=== PATIENT | male | born 1975 | race Caucasian/White ===

== ENCOUNTER 2016-08-21 19:40 | Inpatient (IN) | payer OTHER, MEDICAID ==
[~2016-08-21] VITALS: Ht 185.4 cm; Wt 59.9 kg
[2016-08-21 19:55] VITALS: BP_SYST 132
--- NOTE | 2016-08-21 19:55 | NUR ---
Placed in room 4 . Placed on patient monitor, blood pressure machine and pulse oximeter. To gown for exam. Side rails up. Report given to MY RN
[2016-08-21] MEDS ORDERED: HYDROmorphone 1 MG INJ. 1 MG/ML AMPUL IVP ONE (20:15)
--- NOTE | 2016-08-21 20:15 | NUR ---
Pt brought in by ACLS, A&Ox4, c/o red and swollen right lower leg and open wound to right heel. Pt denies chest pain, sob or other distress. aware. Safety maintained. Continue to monitor
[2016-08-21] MEDS ORDERED: FERR-57 PO (20:25)
[2016-08-21] MEDS ORDERED: HYDR-4100 PO ×2 (20:26→20:35)
[2016-08-21] MEDS ORDERED: INSU100V11 SQ ×2 (20:26→20:30)
[2016-08-21] MEDS ORDERED: MULT-300 PO (20:28)
[2016-08-21] MEDS ORDERED: NEU300 PO (20:30)
[2016-08-21] MEDS ORDERED: AMYL1CAP54 PO (20:32)
[2016-08-21] MEDS ORDERED: ACET-2165 PO ×2 (20:33→20:34)
[2016-08-21] MEDS ORDERED: MAGN400O4 PO (20:36)
[2016-08-21] MEDS ORDERED: SERT-131 PO (20:38)
[2016-08-21] MEDS ORDERED: RISP3TAB5 PO (20:38)
[2016-08-21 20:45] LABS: MEAN CORPUSCULAR HEMOGLOBIN 27 pg (27-31); MEAN CORPUSCULAR HGB CONC 33 % (32-36); MEAN CORPUSCULAR VOLUME 82 fL (79.0-98.0)
[2016-08-21 20:54] LABS: RED BLOOD CELL COUNT(AUTO) 2.69 MIL/uL (4.2-6.2); WHITE BLOOD COUNT (AUTO) 22.2 K/uL (4.8-10.8)
[2016-08-21 20:55] LABS: PLATELET COUNT (AUTO) 524 K/uL (130-430); RED CELL DISTRIBUTION WIDTH 15.8 % (9.0-15.0)
[2016-08-21 20:57] LABS: HEMATOCRIT 21.9 % (36-54); HEMOGLOBIN 7.2 g/dL (14.0-18.0)
[2016-08-21] MEDS ORDERED: INSU100V8 SUBCUT (20:59)
[2016-08-21] MEDS ORDERED: GLUCOSE GEL PO (21:00)
[2016-08-21] MEDS ORDERED: GLUC1VIA4 IM (21:00)
[2016-08-21] MEDS ORDERED: [UNRECOGNIZED DRUG - CODE] IV (21:01)
--- NOTE | 2016-08-21 21:02 | NUR ---
Medication reconciliation completed with information provided by [facility]. Any prior medication reconciliation on file was reviewed and corrected.
[2016-08-21 21:06] LABS: CALCIUM 8.4 mg/dL (8.4-11.0); CHLORIDE 94 mmol/L (98-107); CREATININE 1.19 mg/dL (0.55-1.30); GLUCOSE 356 mg/dL (70-99); SODIUM SERUM 128 mmol/L (136-145); UREA NITROGEN, BLOOD 21 mg/dL (8-21)
[2016-08-21 21:10] LABS: ALANINE AMINOTRANSFERASE 48 U/L (12-78); ALBUMIN 1.9 g/dL (3.4-4.8); ANION GAP < 3 (5-15); ASPARTATE AMINOTRANSFERASE 50 U/L (10-37); GFR AFRICAN AMERICAN 86 mL/min (>90); TOTAL BILIRUBIN 0.2 mg/dL (0.0-1.0); TOTAL PROTEIN, SERUM 7.7 g/dL (6.4-8.3)
[2016-08-21 21:26] LABS: ATYPICAL LYMPHOCYTES % 0 % (0-0); BAND % (MANUAL) 1 % (0-6); LYMPHOCYTES % (MANUAL) 8 % (20-46); MONOCYTES % (MANUAL) 2 % (0-11)
[2016-08-21 21:27] LABS: BASOPHILS % (MANUAL) 0 % (0-2); EOSINOPHILS % (MANUAL) 0 % (0-7)
[2016-08-21] MEDS ORDERED: PIPERACILLIN/TAZO 3.375 GM in NS 50 ML IV ONE (21:30)
[2016-08-21] MEDS ORDERED: VANCOMYCIN HCL 1,000 MG in NS 250 ML IV ONE (21:30)
[2016-08-21] MEDS ORDERED: VANCOMYCIN HCL 1000 MG/VIAL IV ONE (21:32)
[2016-08-21] MEDS ORDERED: PIPERACILLIN/TAZOBACTAM 3.375 GM/VIAL (ZOSYN) IV ONE (21:32)
--- NOTE | 2016-08-21 22:00 | NUR ---
HS SNACKS TURKEY SANDWICH AND JELLO PROVIDED TO PT. FOR HS SNACKS.
--- NOTE | 2016-08-21 22:55 | NUR ---
Patient will be admitted to [facility] RN. Admitted to Med/Surg unit. Will go to room 135. Belongings list completed. Summary report printed. Report will be given at bedside.
--- NOTE | 2016-08-21 23:15 | NUR ---
ADMIT NOTE Received pt from ER to the floor with a diagnosis of Cellulitis. Admission process initiated. patient oriented to pain management, safety and call light-teach back done.
[2016-08-21 23:17] VITALS: BP_SYST 135
[2016-08-22] VITALS (7 sets, daily range): BP systolic 107–132
[2016-08-22] MEDS ORDERED: ACETAMINOPHEN 325 MG TABLET PO PRN
[2016-08-22] MEDS ORDERED: MILK OF MAGNESIA 30 ML UDC PO PRN
--- NOTE | 2016-08-22 | NUR ---
Initial note A/O x 3, no SOB, no chest pain, c/o R leg pain when touching. Skin warm to touch, IV at L FA, patent. R foot/sole wound noted, pink/white wound bed with yellow drainage from old dressing. One blister at R leg, some yellow drainage on chux, 2 dry scabs on L legs with periwound redness. Pressure ulcer at buttock with pink/red wound bed and excoriation. +4 edema at R foot and +1 edema at L foot. +1 bilateral pedal pulses. Clear lung sounds and active bowel sounds. 250 ml clear yellow urine noted in the urinal. Patient stated he is wearing diaper/brief due to bowel incontinence, last BM was on 08/21/2016. Call light within reach, bed at lowest position, bed alarm on, will continue to monitor patient. Addendum: 08/22/16 at 0027 by Yusef Waterman RN Patient had 2nd and 5th toes of R foot amputated years ago.
--- NOTE | 2016-08-22 00:04 | NUR ---
CONSULTATION PAGED REASON FOR CONSULTATION:CELLULITIS OF RT LOWER EXT. WAS CONSULT CALLED?Y PERSON WHO WAS NOTIFIED:NAHOMY CONSULTING PHYSICIAN:STIVEN PEREZ BROADCAST NEWS PRODUCER SPECIALTY:INFECTIOUS DISEASE BROADCAST NEWS PRODUCER PHONE NUMBER:[phone]
[2016-08-22] MEDS: HYDROmorphone 2 MG/ML VIAL IVP PRN ×6 (00:15→22:07)
--- NOTE | 2016-08-22 02:00 | NUR ---
Rounds Patient is sleeping in bed. No SOB, no chest pain, no grimacing. Call light within reach, will continue to monitor patient.
--- NOTE | 2016-08-22 03:23 | NUR ---
Assisted patient use walker back from bathroom to bed. Patient stated he had a BM. Patient asked for diaper because he is afraid to wet the bed. Explained to patient that chux is underneath him if case of accident. Patient refused to put on underwear at this time. Patient had mild pain at R foot refused pain med. Call light within reach, bed at lowest position, bed alarm on, will continue to monitor patient.
--- NOTE | 2016-08-22 04:42 | NUR ---
Rounds Sleeping in bed, no SOB, no chest pain, no grimacing. Call light within reach, bed at lowest position, bed alarm on, will continue to monitor patient.
--- NOTE | 2016-08-22 05:00 | NUR ---
C/o 01/13 at R foot, Dilaudid IVP given. Provided coffee per patient requested. Emptied 200 clear yellow urine from urinal.
[2016-08-22] MEDS ORDERED: PIPERACILLIN/TAZOBACTAM 3.375 GM/VIAL (ZOSYN) IV ONE (05:54)
[2016-08-22] MEDS: PIPERACILLIN/TAZO 3.375/DEX-IS 50 ML IV SCH ×2 (06:00→12:00)
--- NOTE | 2016-08-22 06:10 | NUR ---
Rounds Resting/sleeping in bed. No SOB, no chest pain, no grimacing. IV Zosyn ongoing. IV site patent, no s/s of infection or infiltration. Call light within reach, bed at lowest position, bed alarm on, will continue to monitor patient.
[2016-08-22] MEDS: INSULIN REGULAR, HUMAN 100 UNITS/ML, 10 ML VIAL (novoLIN R) SUBCUT PRN ×2 (06:21→11:18)
[2016-08-22 06:28] LABS: BASOPHILS % (AUTO) 0.1 % (0.0-2.0); EOSINOPHILS % (AUTO) 0.1 % (0.0-4.0); HEMATOCRIT 23.3 % (36-54); HEMOGLOBIN 7.6 g/dL (14.0-18.0); LYMPHOCYTES # (AUTO) 1.2 K/uL (1.0-5.5); LYMPHOCYTES % (AUTO) 4.8 % (20.5-51.5); MEAN CORPUSCULAR HEMOGLOBIN 27 pg (27-31); MEAN CORPUSCULAR HGB CONC 33 % (32-36); MEAN CORPUSCULAR VOLUME 83 fL (79.0-98.0); MONOCYTES # (AUTO) 0.8 K/uL (0.0-1.0); MONOCYTES % (AUTO) 3.3 % (1.7-9.3); NEUTROPHILS # (AUTO) 22.3 K/uL (1.8-7.7); NEUTROPHILS % (AUTO) 91.7 % (40.0-70.0); PLATELET COUNT (AUTO) 506 K/uL (130-430); RED CELL DISTRIBUTION WIDTH 16.2 % (9.0-15.0); WHITE BLOOD COUNT (AUTO) 24.3 K/uL (4.8-10.8)
--- NOTE | 2016-08-22 06:30 | NUR ---
BS 453 Patient did not have any s/s of hyperglycemia. Patient had one cup of coffee with some sugar and cream earlier. Awaiting call back.
[2016-08-22 06:31] LABS: CALCIUM 8.4 mg/dL (8.4-11.0); CREATININE 1.08 mg/dL (0.55-1.30); POTASSIUM 3.9 mmol/L (3.5-5.1)
--- NOTE | 2016-08-22 07:00 | NUR ---
Dr. Jurado call back Regarding patient blood sugar 453 and Hgb 7.2. stated patient always had high blood sugar, just gave 12 units Insulin as ordered. No new order receive.
[2016-08-22 07:22] LABS: IRON (SERUM) 11 mcg/dL (59-158); TOTAL IRON BIND. CAPACITY 170 ug/dL (250-450)
--- NOTE | 2016-08-22 07:34 | NUR ---
Closing note Sleeping in bed, no SOB, no chest pain, no grimacing. Bed at lowest position, bed alarm on, call light within reach. Report given to incoming nurse regarding patient condition, sugar level 453 and HgB 7.2 and is aware. No new order. Also gave report regarding patient wounds and wound consult had been ordered.
--- NOTE | 2016-08-22 09:03 | NUR ---
Nutrition Update Chucky Scale 15 noted. Pt admitted for cellulitis of LE. Diet: [facility] BMI: 17.4 kg/m2 RD to follow per nutrition care standards.
[2016-08-22] MEDS: MULTIVITS,CA,MINERALS/IRON/FA 1 TABLET PO SCH (09:27)
[2016-08-22] MEDS: risperiDONE 1 MG TABLET (RisperDAL) PO SCH (09:27)
[2016-08-22] MEDS: GABAPENTIN 300 MG CAPSULE PO SCH ×3 (09:27→21:08)
[2016-08-22] MEDS: FERROUS SULFATE 325 MG TABLET.DR PO SCH ×2 (09:27→21:07)
[2016-08-22] MEDS: SERTRALINE HCL 50 MG TABLET PO SCH ×2 (09:49→21:07)
[2016-08-22] MEDS: LIPASE/PROTEASE/AMYLASE 1 CAP PO SCH ×3 (09:49→21:10)
[2016-08-22] MEDS ORDERED: VANCOMYCIN HCL 750 MG in NS 250 ML IV SCH (10:00)
--- NOTE | 2016-08-22 10:00 | NUR ---
rounds hob elevated and asleep. due abx was given as ordered.
--- NOTE | 2016-08-22 12:00 | NUR ---
rounds no hypo hyperglycemic reaction noted. call light within reached. no sob noted.
--- NOTE | 2016-08-22 14:00 | NUR ---
rounds family in the room with patient. resting comfortably.
--- NOTE | 2016-08-22 15:30 | NUR ---
WOUND EVALUATION: Wound Consult received from Dr. Jurado. Thank you, Dr. Jurado, for the consult. Patient received in a Wilmore Bed with an Isoflex JUNIOR mattress, awake, alert, and oriented. Patient is unable to turn independently. Chucky Score is a 15. Past Medical History:Insulin-Dependent Diabetes Mellitus, Peripheral Vascular Disease of the lower extremities, and Charcot foot of the right side. Recent Labs: WBC 24.3, RBC 2.80, Hemoglobin 7.6, Hematocrit 23.3, Platelets 506, Sodium 130, Chloride 94, GFR 79, POC Glucose 354, Iron 11, TIBC 170, % Sat 6, Albumin 1.9 Microbiology: Blood culture 2 in progress. Intrinsic factors that delay wound healing: Extrinsic factors that delay wound healing: Decreased mobility. Wound Assessment: 1) Right Plantar Heel: Diabetic Ulcer, present on admission. Wound bed is 95% yellow tissue, 5% pink tissue. No odor, scant yellow drainage. Татьяна-wound callused, with dry flaky skin. Measures 3.5 cm x 5.6 cm x 0.6 cm. Extremity is very warm to touch, whereas left lower extremity is cool to touch. Dry, flaky skin present on right ankle, right dorsal foot, and right lower extremity. Fourth and fifth toes have old amputation sites. Recommend: Cleanse wound with normal saline. Place sure prep onto татьяна-wound. Venelex ointment onto the wound bed. Pack wound with 1/4 inch iodoform. Cover with foam dressing. Wrap with Soco wrap. Perform wound care daily, and as needed for dressing soiling or dislodgement. 2) right proximal anterior lateral harrison: Open bulla with small yellow drainage. Recommend: Cleanse wound with normal saline. Pat dry. Put sure prep on periwound. Apply Xeroform dressing to site, cover with nonadherent pad, and wrap with Soco wrap. Secure with tape. Also recommend: Reposition patient every 2 hours with pillow support and off-load pressure areas with pillows for pressure re-distribution. Offload, elevate and float bilateral heels with pillows. Perform skin care and monitor skin integrity Q shift. Use moisture barrier cream on buttocks and other moisture susceptible areas QID and as needed for soiling. Place patient on a low air-loss mattress. Recommend surgical consult. Spoke with Dr. Jurado and received orders for Venelex. Also recommended to Dr. Jurado to order a surgical consult
--- NOTE | 2016-08-22 16:00 | NUR ---
rounds with dimas wound nurse at bedside and mckenna michele's wound on the r leg. dressing changed after to the r leg.
[2016-08-22] MEDS: SOD FERRIC GLUC COMPLEX/SUC 125 MG in NS 100 ML IV SCH ×2 (16:27→17:52)
--- NOTE | 2016-08-22 18:11 | NUR ---
rounds accucheck was done with a blood sugar of 74 . no hypo hyperglycemic reaction noted. eating dinner and due meds given as ordered. stable needs attended.
--- NOTE | 2016-08-22 19:00 | NUR ---
closing notes watchin tv. no sob noted. resting comfortably. call light within reached.
--- NOTE | 2016-08-22 19:46 | NUR ---
PM ASSESSMENT PT. A/OX4, VITAL SIGNS STABLE, NO DISTRESS NOTED, DENIES PAIN AT THIS TIME, NOTED WITH LFA 20G, SALINE LOCKED, FLUSHED WELL. NOTED WITH DRESSING TO RIGHT LOWER EXTREMITY, DRESSING IS CLEAN, DRY, INTACT, NOTED WITH PITTING EDEMA 4+ TO R. FOOT, NOTED WITH REDNESS AND SWELLING AND WEAK PEDAL PULSE TO R. FOOT, ELEVATED WITH PILLOW SUPPORT. UPDATED WITH PLAN OF CARE. ENCOURAGED PT. TO USE CALL LIGHT FOR ASSISTANCE, CALL LIGHT WITHIN REACH, BED IN LOWEST POSITION, BED ALARM ON.
[2016-08-22] MEDS: LACTOBACILLUS RHAMNOSUS GG 1 CAP CAPSULE PO SCH (21:07)
[2016-08-22] MEDS: TEMAZEPAM 15 MG CAPSULE PO SCH (21:07)
[2016-08-22] MEDS: ENOXAPARIN SODIUM 40 MG/0.4 ML SYRINGE SUBCUT SCH (21:08)
--- NOTE | 2016-08-22 21:27 | NUR ---
ACCUCHECK BLOOD SUGAR=93, NO COVERAGE GIVEN, PT. REFUSED LEVEMIR AT THIS TIME.
[2016-08-22] MEDS ORDERED: CEFTAROLINE FOSAMIL ACETATE 600 MG VIAL IV ONE (22:00)
[2016-08-22] MEDS: ONDANSETRON HCL 4 MG/2 ML VIAL IVP PRN (22:07)
[2016-08-22] MEDS: CEFTAROLINE FOSAMIL ACETATE 600 MG in NS 250 ML IV SCH (22:08)
--- NOTE | 2016-08-22 23:30 | NUR ---
RN ROUNDS PT. RESTING QUIETLY, VITAL SIGNS STABLE, NO DISTRESS NOTED, DENIES PAIN, CALL LIGHT WITHIN REACH.
--- NOTE | 2016-08-23 01:30 | NUR ---
RN ROUNDS PT. RESTING QUIETLY, VITAL SIGNS STABLE, NO DISTRESS NOTED, DENIES PAIN, REPOSTIONED, WITH PILLOW SUPPORT, CALL LIGHT WITHIN REACH
--- NOTE | 2016-08-23 03:30 | NUR ---
RN ROUNDS REPOSITIONED WITH PILLOW SUPPORT.
[2016-08-23] MEDS: ONDANSETRON HCL 4 MG/2 ML VIAL IVP PRN (03:42)
[2016-08-23] MEDS: HYDROmorphone 2 MG/ML VIAL IVP PRN ×5 (03:42→21:32)
--- NOTE | 2016-08-23 03:42 | NUR ---
PAIN PT. C/O SEVERE GENERALIZED PAIN RATED 7/10, DILAUDID 2 MG IVP GIVEN ORDERED. VITAL SIGNS STABLE, CALL LIGHT WITHIN REACH.
[2016-08-23 04:00] VITALS: BP_SYST 119
[2016-08-23 05:06] LABS: FOLATE (FOLIC ACID) 15.8 ng/mL (>3.0)
--- NOTE | 2016-08-23 05:30 | NUR ---
RN ROUNDS PT. RESTING QUIETLY, VITAL SIGNS STABLE, NO DISTRESS NOTED, DENIES PAIN, CALL LIGHT WITHIN REACH.
[2016-08-23] MEDS: INSULIN REGULAR, HUMAN 100 UNITS/ML, 10 ML VIAL (novoLIN R) SUBCUT PRN ×3 (05:47→20:52)
--- NOTE | 2016-08-23 06:00 | NUR ---
ACCUCHECK BLOOD FHSAV=418, 4 UNITS REGULAR INSULIN GIVEN ORDERED.
--- NOTE | 2016-08-23 06:42 | NUR ---
CLOSING NOTES PT. RESTING QUIETLY, VITAL SIGNS STABLE, NO DISTRESS NOTED, DENIES PAIN, DRESSING TO RLE IN PLACE, PILLOW UNDER RLE IN PLACE. IV ACCESS PATENT AND BENIGN, CALL LIGHT WITHIN REACH.
[2016-08-23 06:48] LABS: BASOPHILS % (AUTO) 0.1 % (0.0-2.0); EOSINOPHILS # (AUTO) 0.1 K/uL (0.0-0.4); EOSINOPHILS % (AUTO) 0.2 % (0.0-4.0); HEMATOCRIT 22.3 % (36-54); HEMOGLOBIN 7.3 g/dL (14.0-18.0); LYMPHOCYTES # (AUTO) 0.7 K/uL (1.0-5.5); LYMPHOCYTES % (AUTO) 2.6 % (20.5-51.5); MEAN CORPUSCULAR HEMOGLOBIN 27 pg (27-31); MEAN CORPUSCULAR HGB CONC 33 % (32-36); MEAN CORPUSCULAR VOLUME 83 fL (79.0-98.0); MONOCYTES # (AUTO) 0.9 K/uL (0.0-1.0); MONOCYTES % (AUTO) 3.2 % (1.7-9.3); NEUTROPHILS # (AUTO) 25.3 K/uL (1.8-7.7); PLATELET COUNT (AUTO) 525 K/uL (130-430); RED BLOOD CELL COUNT(AUTO) 2.69 MIL/uL (4.2-6.2); RED CELL DISTRIBUTION WIDTH 15.8 % (9.0-15.0)
[2016-08-23 07:07] LABS: CALCIUM 8.5 mg/dL (8.4-11.0); CREATININE 0.85 mg/dL (0.55-1.30); PHOSPHORUS 4.4 mg/dL (2.7-4.5); POTASSIUM 4.1 mmol/L (3.5-5.1)
[2016-08-23 08:00] VITALS: BP_SYST 115
--- NOTE | 2016-08-23 08:00 | NUR ---
initial notes rec patient awake alert eating breakfast with hob elevated. ivf tko infusing well on the l forearm. no infiltration noted. r leg dressing dry and intact and kept elevated on a pillow. no c/o pain at this time. fall/safety precaution reminded and aware. bed in low position and side rails up and locked. call light with reached and knows when to call.
[2016-08-23] MEDS: FERROUS SULFATE 325 MG TABLET.DR PO SCH ×2 (08:36→20:39)
[2016-08-23] MEDS: LACTOBACILLUS RHAMNOSUS GG 1 CAP CAPSULE PO SCH ×2 (08:36→20:37)
[2016-08-23] MEDS: LIPASE/PROTEASE/AMYLASE 1 CAP PO SCH ×3 (08:36→20:37)
[2016-08-23] MEDS: risperiDONE 1 MG TABLET (RisperDAL) PO SCH (08:36)
[2016-08-23] MEDS: SERTRALINE HCL 50 MG TABLET PO SCH ×2 (08:36→20:37)
[2016-08-23] MEDS: GABAPENTIN 300 MG CAPSULE PO SCH ×3 (08:37→20:37)
[2016-08-23] MEDS: MULTIVITS,CA,MINERALS/IRON/FA 1 TABLET PO SCH (08:38)
--- NOTE | 2016-08-23 08:51 | NUR ---
rounds pt was taken for nuclear med bone scan via wheelchair by mayur werner.
--- NOTE | 2016-08-23 09:40 | NUR ---
rounds pt was back from [facility] and went to sleep. no sob noted.
[2016-08-23] MEDS: CEFTAROLINE FOSAMIL ACETATE 600 MG in NS 250 ML IV SCH ×2 (10:02→20:41)
[2016-08-23 11:33] LABS: NEUTROPHILS % (AUTO) 93.9 % (40.0-70.0)
[2016-08-23 12:00] VITALS: BP_SYST 128
--- NOTE | 2016-08-23 13:18 | NUR ---
rounds pain med was given as requested. dr hampton was called re pos mrsa. awaiting to call back.
--- NOTE | 2016-08-23 14:08 | NUR ---
rounds pt was picked up for another phase of the bone scan. was picked up via wheelchair. no sob noted
--- NOTE | 2016-08-23 16:00 | NUR ---
rounds due meds given and patient is sleeping soundly. no acute distress.
[2016-08-23] MEDS: SOD FERRIC GLUC COMPLEX/SUC 125 MG in NS 100 ML IV SCH (16:20)
[2016-08-23 16:24] VITALS: BP_SYST 131
--- NOTE | 2016-08-23 17:55 | NUR ---
WOUND CARE PROVIDED CARE AND REDRESSED WOUNDS ON RIGHT HEEL AND RIGHT LOWER LEG PER MAHAMED'S PROTOCOL
[2016-08-23] MEDS: FLUCONAZOLE 200 mg/ NS 100 ML IV SCH (18:14)
--- NOTE | 2016-08-23 19:00 | NUR ---
rounds pt stated that blood sugar was low and was 64. apple juice was given with 5 packets of sugar. was rechecked after 20 min and was 68. sandwich and jello was given . will endorsed to julia werner re the blood sughar. stacy charge nurse made aware.
--- NOTE | 2016-08-23 19:20 | NUR ---
Initial Notes Received pt in bed having dinner.Pt is a/a/o x4. No s/s of any distress noted. IV noted to L f/a g 20, no infiltrate and with good blood return. Noted dressing to R leg, no bleeding and no discharge.All extremities are strong, BRP. Discussed plan of care with pt and verbalized understanding. Bed in low position with call light within reach. Will cont to monitor.
--- NOTE | 2016-08-23 20:01 | NUR ---
Started blood transfusion Started blood transfusion. Pt is a/a/o x4 at this time. V/S are wnl. No s/s of any distress noted. Will monitor for adverse reactions. Addendum: 08/23/16 at 2214 by Rubio Sanders RN correction: correct time is 2200
[2016-08-23] MEDS: TEMAZEPAM 15 MG CAPSULE PO SCH (20:37)
[2016-08-23] MEDS: ENOXAPARIN SODIUM 40 MG/0.4 ML SYRINGE SUBCUT SCH (20:38)
[2016-08-23] MEDS ORDERED: MUPIROCIN NASAL 2% OINT. 1 GM NS SCH (21:00)
[2016-08-24 00:18] VITALS: BP_SYST 125
--- NOTE | 2016-08-24 00:33 | NUR ---
Started 2nd unit of PRBC Started 2nd unit of prbc. v/s are wnl, no s/s of any distress noted. Will monitor pt.
--- NOTE | 2016-08-24 03:00 | NUR ---
Finished transfusing blood. Finished transfusing 2 units of blood. Pt is resting comfortably. V/S are wnl, no adverse reaction noted. Will cont to monitor.
--- NOTE | 2016-08-24 04:14 | NUR ---
Admin Glucagon Pt was diaphoretic and slow to respond. B/S was 33. Admin Glucagon PRN as ordered, snack was also provided. Will recheck after 30 mins.
[2016-08-24] MEDS: GLUCAGON,HUMAN RECOMBINANT 1 MG VIAL IM PRN ×2 (04:19→17:57)
[2016-08-24] MEDS: HYDROmorphone 2 MG/ML VIAL IVP PRN ×4 (04:47→19:35)
[2016-08-24 05:22] VITALS: BP_SYST 142
[2016-08-24 06:56] LABS: HEMATOCRIT 26.2 % (36-54); HEMOGLOBIN 8.6 g/dL (14.0-18.0); MEAN CORPUSCULAR HEMOGLOBIN 28 pg (27-31); MEAN CORPUSCULAR HGB CONC 33 % (32-36); MEAN CORPUSCULAR VOLUME 84 fL (79.0-98.0); PLATELET COUNT (AUTO) 497 K/uL (130-430); RED BLOOD CELL COUNT(AUTO) 3.11 MIL/uL (4.2-6.2)
[2016-08-24 06:58] LABS: CALCIUM 8.2 mg/dL (8.4-11.0); CREATININE 0.92 mg/dL (0.55-1.30); POTASSIUM 3.8 mmol/L (3.5-5.1)
--- NOTE | 2016-08-24 07:05 | NUR ---
Final Rounds Patient is resting at this time. No s/s of any pain noted. V/S are wnl. All needs met and anticipated by noc nurses. Bed in low position with side rails up x2 for safety. Endorsed
--- NOTE | 2016-08-24 07:06 | NUR ---
Pt refused Insulin Pt refused insulin d/t hypoglycemic episode. Explained risk and benefits but still refused. Will notify Dr Jurado.
[2016-08-24 07:21] LABS: WHITE BLOOD COUNT (AUTO) 30.4 K/uL (4.8-10.8)
--- NOTE | 2016-08-24 07:30 | NUR ---
Dr. PAREDES , paged for critical lab result , spoke to
--- NOTE | 2016-08-24 07:45 | NUR ---
INITIAL NOTE RECEIVED PATIENT FROM SALES DIRECTOR NURSE, PATIENT IS ALERT AND ORIENTED X4, PATIENT IS CURRENTLY RESTING IN BED, ASSESSMENT COMPLETE, PATIENT HAS IV ON LEFT UPPER ARM SALINE LOCK, FLUSHES WELL, PATIENT HAS DRESSING TO RIGHT LOWER LEG AND RIGHT HEEL, DRESSINGS ARE DRY AND INTACT, INSTRUCTED PATIENT TO USE CALL BADILLO IF ASSISTANCE IS NEEDED, PATIENT VERBALIZED UNDERSTANDING, CALL BADILLO LEFT NEXT TO PATIENT'S HAND, BED IN LOWEST POSITION, SIDE RAILS UP, FALL PRECAUTIONS IN PLACE, WILL CONTINUE TO MONITOR PATIENT.
[2016-08-24 08:01] VITALS: BP_SYST 140
[2016-08-24] MEDS: GABAPENTIN 300 MG CAPSULE PO SCH ×3 (08:10→21:22)
[2016-08-24] MEDS: risperiDONE 1 MG TABLET (RisperDAL) PO SCH (08:11)
[2016-08-24] MEDS: LACTOBACILLUS RHAMNOSUS GG 1 CAP CAPSULE PO SCH ×2 (08:11→21:23)
[2016-08-24] MEDS: FERROUS SULFATE 325 MG TABLET.DR PO SCH ×2 (08:11→21:23)
[2016-08-24] MEDS: SERTRALINE HCL 50 MG TABLET PO SCH ×2 (08:11→21:23)
[2016-08-24] MEDS: LIPASE/PROTEASE/AMYLASE 1 CAP PO SCH ×3 (08:11→21:38)
[2016-08-24] MEDS: MULTIVITS,CA,MINERALS/IRON/FA 1 TABLET PO SCH (08:11)
[2016-08-24] MEDS: CEFTAROLINE FOSAMIL ACETATE 600 MG in NS 250 ML IV SCH ×2 (08:13→20:32)
--- NOTE | 2016-08-24 08:21 | NUR ---
MEDICATIONS PATIENT RECEIVED MORNING MEDICATIONS, INFORMED PATIENT ON POTENTIAL SIDE EFFECTS OF MEDS, PATIENT VERBALIZED UNDERSTANDING, NO OTHER NEEDS AT THIS TIME, WILL CONTINUE TO MONITOR, CALL BADILLO NEXT TO PATIENT'S HAND, BED ALARM ON, FALL PRECAUTIONS IN PLACE.
[2016-08-24 09:22] LABS: BAND % (MANUAL) 5 % (0-6); BASOPHILS % (MANUAL) 0 % (0-2); EOSINOPHILS % (MANUAL) 0 % (0-7); LYMPHOCYTES % (MANUAL) 2 % (20-46); MONOCYTES % (MANUAL) 4 % (0-11)
--- NOTE | 2016-08-24 09:48 | NUR ---
RN ROUNDS PATIENT IS RESTING IN BED WITH EYES CLOSED, NO SIGNS OF DISTRESS NOTED, BREATHING IS EVEN AND UNLABORED, CALL BADILLO LEFT NEXT TO PATIENT HAS, FALL AND ISOLATION PRECAUTIONS IN PLACE, WILL CONTINUE TO MONITOR.
--- NOTE | 2016-08-24 10:36 | NUR ---
ID MD Dr. Weston paged Paged regarding critical lab result
[2016-08-24] MEDS: MUPIROCIN 2% TOPICAL OINTMENT 22 GM TP SCH ×2 (10:42→21:38)
[2016-08-24] MEDS: INSULIN REGULAR, HUMAN 100 UNITS/ML, 10 ML VIAL (novoLIN R) SUBCUT PRN (11:49)
--- NOTE | 2016-08-24 11:52 | NUR ---
RN ROUNDS PATIENT IS CURRENTLY RESTING IN BED WITH EYES CLOSED, PATIENT WAS GIVEN INSULIN FOR BS OF 310, PATIENT TOLERATED WELL, WILL CONTINUE TO MONITOR PATIENT, FALL PRECAUTIONS IN PLACE, NO OTHER NEEDS AT THIS TIME,
[2016-08-24 12:33] VITALS: BP_SYST 128
--- NOTE | 2016-08-24 13:45 | NUR ---
RN ROUNDS PATIENT IS UP WATCHING TV, PATIENT HAS NO COMPLAINTS OF PAIN AT THIS TIME, WILL CONTINUE TO MONITOR.
[2016-08-24] MEDS: CLINDAMYCIN 600 mg/50mL D5W 50 ML IV SCH ×2 (14:28→22:02)
[2016-08-24] MEDS: FLUCONAZOLE 200 mg/ NS 100 ML IV SCH (15:54)
--- NOTE | 2016-08-24 16:00 | NUR ---
LOW GLUCOSE GLUCOSE CHECKED, BS DROPPED DOWN TO 35, PATIENT WAS ALERT AND ORIENTED, PATIENT WAS SHAKY, GLUCAGEN GIVEN, BS RECHECK WENT UP TO 101, CALLED DR. LORD, AND NOTIFIED HIM, ORDERED FOR PATIENT TO HAVE D50 PRN Addendum: 08/24/16 at 1818 by Charles Coe RN TIME CHANGE 1800
--- NOTE | 2016-08-24 16:03 | NUR ---
RN ROUNDS PATIENT IS CURRENTLY RESTING IN BED WITH EYES CLOSED, NO SIGNS OF DISTRESS NOTED, BREATHING IS EVEN AND UNLABORED, CALL BADILLO IS LEFT NEXT TO PATIENT'S HAND, WILL CONTINUE TO MONITOR PATIENT, FALL AND ISOLATION PRECAUTIONS IN PLACE.
[2016-08-24 16:34] VITALS: BP_SYST 124
--- NOTE | 2016-08-24 17:00 | NUR ---
WOUND CARE Wound Assessment: 1) Right Plantar Heel: Diabetic Ulcer, Sharifa-wound callused, with dry flaky skin. Cleansed wound with normal saline. Placed sure prep onto sharifa-wound. Venelex ointment onto the wound bed. Packed wound with 1/4 inch iodoform. Covered with foam dressing. Wrapped with Soco wrap. 2) right proximal anterior lateral harrison: Open bulla with small yellow drainage. Cleansed wound with normal saline. Pat dry. Put sure prep onto periwound. Applied Xeroform dressing to site, covered with nonadherent pad, and wrap with Soco wrap. Secured with tape.
[2016-08-24] MEDS: SOD FERRIC GLUC COMPLEX/SUC 125 MG in NS 100 ML IV SCH (17:19)
--- NOTE | 2016-08-24 17:28 | NUR ---
RN ROUNDS PATIENT'S BLOOD SUGAR IS DOWN TO 57, ASYMPTOMATIC, PATIENT STATES HE FEELS FINES, PATIENT WAS GIVEN ORANGE JUICES, WILL RECHECK SUGAR
[2016-08-24] MEDS ORDERED: DEXTROSE 50% JECT 50 ML DISP.SYRIN IVP ONE (18:45)
--- NOTE | 2016-08-24 18:46 | NUR ---
CLOSING NOTE PATIENT IS SITTING UP IN BED WATCHING TV, NO SIGNS OF DISTRESS NOTED, ALL NEEDS MET, WILL ENDORSE PATIENT TO DICE MAKER NURSE, CALL BADILLO LEFT NEXT TO PATIENT'S HAND, BED IN LOWEST POSITION, BED ALARM ON, FALL PRECAUTIONS IN PLACE.
[2016-08-24 20:00] VITALS: BP_SYST 129
--- NOTE | 2016-08-24 20:05 | NUR ---
Rounds Received patient lying in bed resting, c/o pain, medication given by morning nurse will monitor for effectiveness. IV site checked intact and patent, IV fluid infusing to TKO rate. Instructed patient to call nurse when getting out of bed, call light within reach.
--- NOTE | 2016-08-24 21:00 | NUR ---
Blood sugar 158 Patient blood sugar 158, refused Levemir and insulin coverage. Encouraged patient to eat snack. will monitor.
[2016-08-24] MEDS: TEMAZEPAM 15 MG CAPSULE PO SCH (21:23)
[2016-08-24] MEDS: ENOXAPARIN SODIUM 40 MG/0.4 ML SYRINGE SUBCUT SCH (21:39)
[2016-08-24] MEDS: ONDANSETRON HCL 4 MG/2 ML VIAL IVP PRN (22:02)
--- NOTE | 2016-08-24 22:45 | NUR ---
C/O nausea Patient c/o nausea no vomiting, Zofran ivp given earlier with effective result noted, patient resting quietly, call light within reach.
[2016-08-25 01:14] VITALS: BP_SYST 114
--- NOTE | 2016-08-25 01:27 | NUR ---
Rounds Patient resting quietly call light within reach.
[2016-08-25 04:34] VITALS: BP_SYST 119
--- NOTE | 2016-08-25 04:41 | NUR ---
Rounds Patient resting quietly call light within reach.
[2016-08-25] MEDS: CLINDAMYCIN 600 mg/50mL D5W 50 ML IV SCH ×3 (05:00→21:42)
[2016-08-25] MEDS: HYDROmorphone 2 MG/ML VIAL IVP PRN ×6 (05:00→21:40)
[2016-08-25] MEDS: INSULIN REGULAR, HUMAN 100 UNITS/ML, 10 ML VIAL (novoLIN R) SUBCUT PRN ×2 (05:53→23:45)
[2016-08-25] MEDS: DEXTROSE 50% JECT 50 ML DISP.SYRIN IVP PRN (05:58)
--- NOTE | 2016-08-25 06:40 | NUR ---
Blood sugar 57 Patient blood sugar 57, D50 IVP given at 05:50 per MD order, rechecked blood sugar 116. Informed Dr Jurado no order received. Charge nurse made aware. will monitor patient.
[2016-08-25 06:43] LABS: CALCIUM 8.4 mg/dL (8.4-11.0); CHLORIDE 99 mmol/L (98-107); CREATININE 0.79 mg/dL (0.55-1.30); POTASSIUM 3.9 mmol/L (3.5-5.1); SODIUM SERUM 134 mmol/L (136-145)
[2016-08-25 06:48] LABS: HEMOGLOBIN 8.7 g/dL (14.0-18.0); MEAN CORPUSCULAR HEMOGLOBIN 27 pg (27-31); MEAN CORPUSCULAR HGB CONC 32 % (32-36); MEAN CORPUSCULAR VOLUME 85 fL (79.0-98.0); MONOCYTES % (AUTO) 2.9 % (1.7-9.3); NEUTROPHILS % (AUTO) 89.7 % (40.0-70.0); PLATELET COUNT (AUTO) 439 K/uL (130-430); RED CELL DISTRIBUTION WIDTH 15.4 % (9.0-15.0); WHITE BLOOD COUNT (AUTO) 16.7 K/uL (4.8-10.8)
[2016-08-25 06:49] LABS: BASOPHILS % (AUTO) 0.1 % (0.0-2.0); EOSINOPHILS # (AUTO) 0.1 K/uL (0.0-0.4); EOSINOPHILS % (AUTO) 0.3 % (0.0-4.0); LYMPHOCYTES # (AUTO) 1.2 K/uL (1.0-5.5); MONOCYTES # (AUTO) 0.5 K/uL (0.0-1.0); NEUTROPHILS # (AUTO) 14.9 K/uL (1.8-7.7)
[2016-08-25 06:58] LABS: UREA NITROGEN, BLOOD 13 mg/dL (8-21)
--- NOTE | 2016-08-25 07:23 | NUR ---
Assistance with placing brief for incontinence as patient had alarmed the bed exit. AIR HOLE DRILLER present. Assist getting coffee. Patient asking for pain med. Notified next available dosing would be 9 am. Assessed patient.
[2016-08-25 07:27] LABS: GFR AFRICAN AMERICAN 138 mL/min (>90)
[2016-08-25 07:28] LABS: ANION GAP < 3 (5-15)
[2016-08-25 07:31] LABS: GLUCOSE 46 mg/dL (70-99)
--- NOTE | 2016-08-25 07:45 | NUR ---
AM RN notes Report given at bedside by Candice night nurse. Educated patient on safety to call for assistance before getting out of bed. Patient is awake, eating breakfast. Vital signs and assessment where done.
[2016-08-25 08:09] VITALS: BP_SYST 117
--- NOTE | 2016-08-25 09:05 | NUR ---
RN rounding notes Patient is awake and watching television. States his pain is a 8/10 medicated appropriately. All other AM medication also given at this time.
[2016-08-25] MEDS: LACTOBACILLUS RHAMNOSUS GG 1 CAP CAPSULE PO SCH ×2 (09:15→21:40)
[2016-08-25] MEDS: SERTRALINE HCL 50 MG TABLET PO SCH ×2 (09:15→21:41)
[2016-08-25] MEDS: risperiDONE 1 MG TABLET (RisperDAL) PO SCH (09:16)
[2016-08-25] MEDS: MULTIVITS,CA,MINERALS/IRON/FA 1 TABLET PO SCH (09:16)
[2016-08-25] MEDS: LIPASE/PROTEASE/AMYLASE 1 CAP PO SCH ×3 (09:17→21:42)
[2016-08-25] MEDS: GABAPENTIN 300 MG CAPSULE PO SCH ×3 (09:17→21:41)
[2016-08-25] MEDS: FERROUS SULFATE 325 MG TABLET.DR PO SCH ×2 (09:17→21:41)
[2016-08-25] MEDS: CEFTAROLINE FOSAMIL ACETATE 600 MG in NS 250 ML IV SCH ×2 (09:18→23:20)
[2016-08-25] MEDS: MUPIROCIN 2% TOPICAL OINTMENT 22 GM TP SCH ×2 (09:20→21:59)
--- NOTE | 2016-08-25 09:44 | NUR ---
RN rounding note Patients Blood sugar is 82mg/dl and Patient is refusing the levemir. to inform.
[2016-08-25 11:41] VITALS: BP_SYST 121
--- NOTE | 2016-08-25 11:45 | NUR ---
RN rounding notes Patient is awake and sitting in bed watching television. Patient has call light with in reach, bed alarm is set, and bed in lowest position. Blood sugar check and imputed.
--- NOTE | 2016-08-25 13:20 | NUR ---
WOUND CARE: RIGHT FOOT,CLEANSE WOUND WITH NS. APPLIED SURE PREP ON NICHOLAS WOUND AREA,HYDROGEL ON WOUND BED,PACK WOUND WITH 1/4INCH IODOFORM,COVERED WITH OPTIFOAM AND WRAPPED WITH KVNG.RIGHT ANTERIOR LATERAL MURILLO,POPPED BULUS,CLEANSE WITH NS,PUT SURE PREP ON NICHOLAS WOUND AREA.APPLIED XEROFORM DRESSING TO SITE WITH ADHERENT PAD ON,AND WRAPPED WITH KERLIX,SECURED WITH PAPER TAPE.
--- NOTE | 2016-08-25 13:40 | NUR ---
Rn rounding notes Patient is laying bed appears to be resting. Bed alarm is on , bed is in lowest position and call light is with in reach.
--- NOTE | 2016-08-25 14:25 | NUR ---
DC PLANNING Called & spoke w Dr Jurado earlier today to discuss dc planning. States plan will most likely be LTAC when stable but to speak w Dr Noel if needs surgical intervention, if does will order when comes in later today. Spoke w Dr Noel in ns station states recommends surgical consult. Called & informed Dr Jurado.
--- NOTE | 2016-08-25 15:20 | NUR ---
Rn rounding notes Pateint appears to be resting. Call light is with in reach. Bed in lowest position, bed alarm is on.
[2016-08-25] MEDS: SOD FERRIC GLUC COMPLEX/SUC 125 MG in NS 100 ML IV SCH (15:55)
[2016-08-25] MEDS: FLUCONAZOLE 200 mg/ NS 100 ML IV SCH (15:55)
--- NOTE | 2016-08-25 16:03 | NUR ---
RN note Routine Medication administered to patient. Patient lying down watching television. Call light is with in reach, bed alarm is on, bed is lowest position.
[2016-08-25 16:40] VITALS: BP_SYST 119; BP_SYST 121
--- NOTE | 2016-08-25 17:25 | NUR ---
Rn rounding note Blood sugar was checked and imputed. Patient states pain level is 8/10 medicated appropriately.Bed alarm is on, bed in lowest position, call light is with reach.
--- NOTE | 2016-08-25 18:53 | NUR ---
RN closing notes Patient is awake and sitting in bed, eating dinner. Patient has call light with in reach, bed alarm is on, bed is in lowest position.
[2016-08-25] MEDS: TEMAZEPAM 15 MG CAPSULE PO SCH (21:41)
[2016-08-25] MEDS: ENOXAPARIN SODIUM 40 MG/0.4 ML SYRINGE SUBCUT SCH (21:58)
[2016-08-26 01:19] VITALS: BP_SYST 126
[2016-08-26 04:00] VITALS: BP_SYST 141
[2016-08-26] MEDS: HYDROmorphone 2 MG/ML VIAL IVP PRN ×5 (06:02→22:58)
--- NOTE | 2016-08-26 06:59 | NUR ---
sccu check 177. pt refused to have the 2 units of regular insulun due as per sliding scale.
[2016-08-26] MEDS: CLINDAMYCIN 600 mg/50mL D5W 50 ML IV SCH ×3 (07:02→22:59)
--- NOTE | 2016-08-26 07:33 | NUR ---
INITIAL NOTE RECEIVED PATIENT FROM MECHANICAL PRODUCT ENGINEER NURSE, PATIENT IS ALERT AND ORIENTED X4, PATIENT IS CURRENTLY RESTING IN BED WITH EYES CLOSED, EASILY TO AWAKE, ASSESSMENT COMPLETE, PATIENT HAS IV ON LEFT UPPER ARM SALINE LOCK, FLUSHES WELL, PATIENT HAS DRESSING TO RIGHT LOWER LEG AND RIGHT HEEL, WILL DO DRESSING CHANGE TODAY, INSTRUCTED PATIENT TO USE CALL BADILLO IF ASSISTANCE IS NEEDED, PATIENT VERBALIZED UNDERSTANDING, CALL BADILLO LEFT NEXT TO PATIENT'S HAND, BED IN LOWEST POSITION, SIDE RAILS UP, FALL PRECAUTIONS IN PLACE, WILL CONTINUE TO MONITOR PATIENT.
[2016-08-26 08:00] VITALS: BP_SYST 128
[2016-08-26] MEDS: CEFTAROLINE FOSAMIL ACETATE 600 MG in NS 250 ML IV SCH ×2 (08:33→21:26)
[2016-08-26] MEDS: SERTRALINE HCL 50 MG TABLET PO SCH ×2 (08:34→21:27)
[2016-08-26] MEDS: GABAPENTIN 300 MG CAPSULE PO SCH ×3 (08:34→21:27)
[2016-08-26] MEDS: risperiDONE 1 MG TABLET (RisperDAL) PO SCH (08:34)
[2016-08-26] MEDS: MULTIVITS,CA,MINERALS/IRON/FA 1 TABLET PO SCH (08:34)
[2016-08-26] MEDS: LACTOBACILLUS RHAMNOSUS GG 1 CAP CAPSULE PO SCH ×2 (08:34→21:28)
[2016-08-26] MEDS: LIPASE/PROTEASE/AMYLASE 1 CAP PO SCH ×3 (08:34→21:27)
[2016-08-26] MEDS: FERROUS SULFATE 325 MG TABLET.DR PO SCH ×2 (08:34→21:28)
[2016-08-26] MEDS: MUPIROCIN 2% TOPICAL OINTMENT 22 GM TP SCH ×2 (08:35→21:29)
--- NOTE | 2016-08-26 08:37 | NUR ---
MEDICATIONS PATIENT RECEIVED MORNING MEDICATIONS, INFORMED PATIENT OF POTENTIAL SIDE EFFECTS OF MEDICATIONS, PATIENT VERBALIZED UNDERSTANDING, NO OTHER NEEDS AT THIS TIME, FALL PRECAUTIONS IN PLACE. Addendum: 08/26/16 at 1044 by Charles Coe RN PATIENT REFUSED MORNING LEVEMIR, EDUCATED PATIENT ON IMPORTANCE OF MEDICATION, PATIENT STATED HE DID NOT WANT TO TAKE IT DUE TO HIS SUGAR DROPPING IN THE EVEN.
--- NOTE | 2016-08-26 10:10 | NUR ---
RN ROUNDS PATIENT IS CURRENTLY LYING IN BED PATIENT WAS MEDICATED FOR PAIN, WILL REASSESS PAIN EFFECTIVENESS, NO OTHER NEEDS AT THIS TIME, FALL PRECAUTIONS IN PLACE.
--- NOTE | 2016-08-26 11:21 | NUR ---
SURGICAL CONSULT Spoke with Michelle regarding request for consultation with Dr. Escalante ([phone]) for reason: right leg osteomyelitis.
[2016-08-26 11:37] VITALS: BP_SYST 129
[2016-08-26] MEDS: INSULIN REGULAR, HUMAN 100 UNITS/ML, 10 ML VIAL (novoLIN R) SUBCUT PRN ×2 (11:44→17:42)
--- NOTE | 2016-08-26 12:14 | NUR ---
RN ROUNDS WOUND CARE DONE WITH WOUND CARE NURSE, WILL DOCUMENT; PATIENT TOLERATED WELL, NO OTHER NEEDS AT THIS TIME, CALL BADILLO LEFT NEXT TO PATIENT'S HAND, FALL AND ISOLATION PRECAUTIONS IN PLACE.
--- NOTE | 2016-08-26 12:14 | NUR ---
WOUND EVALUATION: Wound Consult received from Dr. Jurado. Thank you, Dr. Jurado, for the consult. Patient received in a [place] Bed with an Isoflex JUNIOR mattress with low air loss therapy initiated, awake, alert, and oriented. Patient is unable to turn independently. Chucky Score is a 14. Microbiology: Blood culture 2 in progress, MRSA Screen positive. Intrinsic factors that delay wound healing: Extrinsic factors that delay wound healing: Decreased mobility. Wound Assessment: 1) Right Plantar Heel: Diabetic Ulcer, present on admission. Wound bed is 50% yellow tissue, 50% dull red tissue. No odor, scant yellow drainage. Татьяна-wound callused, with dry flaky skin, yellow. Measures 5.0 cm x 6.0 cm x 1.1 cm. Extremity is very warm to touch, whereas left lower extremity is cool to touch. Dry, flaky skin present on right ankle, right dorsal foot, and right lower extremity. Fourth and fifth toes have old amputation sites. Recommend continue: Cleanse wound with normal saline. Place sure prep onto татьяна-wound. Venelex ointment onto the wound bed. Pack wound with 1/4 inch iodoform. Cover with foam dressing. Wrap with Soco wrap. Perform wound care daily, and as needed for dressing soiling or dislodgement. 2) Right Proximal Anterior Lateral Caldera: Open bulla with small yellow drainage. One small red discolored spot present, measuring 1.0 cm x 1.0 cm. No odor, scant serous drainage. Recommend continue: Cleanse wound with normal saline. Pat dry. Put sure prep on periwound. Apply Xeroform dressing to site, cover with nonadherent pad, and wrap with Soco wrap. Secure with tape. 3) Right plantar foot, inferior to metatarsal heads: Appears to be a large closed bulla. No odor, no drainage. Recommend: No dressing needed. Continue to monitor site every shift. Consult wound care nurse is area worsens. 4) Right Foot, Superior and Posterior to Lateral Malleolus: Appears to be a chronic wound, present on admission. No odor, no drainage. Dry, stable. Measures 1.0 cm x 1.0 cm. Recommend: No dressing needed. Continue to monitor site every shift. Consult wound care nurse if area worsens. Also recommend continue: Reposition patient [id number] only every 2 hours with pillow support and off-load pressure areas with pillows for pressure re-distribution. Offload, elevate and float bilateral heels with pillows. Perform skin care and monitor skin integrity Q shift. Use moisture barrier cream on buttocks and other moisture susceptible areas QID and as needed for soiling. Maintain patient on a low air-loss mattress. Dr. Escalante on the case for surgical consult, suspects osteomyelitis, and is planning for amputation.
--- NOTE | 2016-08-26 12:15 | NUR ---
WOUND CARE 1) Right Plantar Heel: Diabetic Ulcer, Sharifa-wound callused, with dry flaky skin, yellow. Cleansed wound with normal saline. Placed sure prep onto sharifa-wound. Venelex ointment onto the wound bed. Packed wound with 1/4 inch iodoform. Covered with foam dressing. Wrapped with Soco wrap. 2) Right Proximal Anterior Lateral Caldera: Open bulla with small yellow drainage. One small red discolored spot present Cleansed wound with normal saline. Pat dry. Put sure prep on periwound. Applied Xeroform dressing to site, covered with nonadherent pad, and wrapped with Soco wrap. Secured with tape. 3) Right plantar foot, inferior to metatarsal heads: Appears to be a large closed bulla. No odor, no drainage. 4) Right Foot, Superior and Posterior to Lateral Malleolus: Appears to be a chronic wound, present on admission. No odor, no drainage. Dry, stable.
[2016-08-26] MEDS: BALSAM PERU/CASTOR OIL 60 GM OINT...G. TP SCH (14:45)
--- NOTE | 2016-08-26 15:00 | NUR ---
RN ROUNDS PATIENT IS RESTING IN BED, WATCHING TV, PATIENT STATES THAT THE PAIN MED THAT WAS GIVEN IS HELPING, INSTRUCTED PATIENT TO CALL IF ASSISTANCE IS NEEDED, PATIENT VERBALIZED UNDERSTANDING, WILL CONTINUE TO MONITOR.
[2016-08-26] MEDS: FLUCONAZOLE 200 mg/ NS 100 ML IV SCH (15:26)
[2016-08-26] MEDS: SOD FERRIC GLUC COMPLEX/SUC 125 MG in NS 100 ML IV SCH (16:37)
--- NOTE | 2016-08-26 17:21 | NUR ---
RN ROUNDS PATIENT IS RESTING QUIETLY IN BED, NO SIGNS OF DISTRESS NOTED, PATIENT HAS NO COMPLAINTS OF PAIN AT THIS TIME, CALL BADILLO LEFT NEXT TO PATIENT, FALL AND ISOLATION PRECAUTIONS IN PLACE, WILL CONTINUE TO MONITOR PATIENT.
[2016-08-26 17:23] VITALS: BP_SYST 122
--- NOTE | 2016-08-26 18:31 | NUR ---
CLOSING NOTE PATIENT IS CURRENTLY SITTING IN BED EATING THE REST OF DINNER, PATIENT WAS MEDICATED FOR PAIN, WILL REASSESS PAIN EFFECTIVENESS, PATIENT DID NOT WANT TO DO MORE WOUND CARE TO LEG, NOTIFIED DR. BETH, DR. BETH STATE IT WAS FINE TO START NEW WOUND CARE ORDERS TOMORROW, ALL NEEDS MET, WILL ENDORSE PATIENT TO DEMURRAGE AGENT NURSE, CALL BADILLO LEFT NEXT TO PATIENT'S HAND, BED IN LOWEST POSITION, BED ALARM ON, FALL AND ISOLATION PRECAUTIONS IN PLACE.
[2016-08-26 20:00] VITALS: BP_SYST 127
--- NOTE | 2016-08-26 20:00 | NUR ---
Initial PM Note Pt was received lying in bed fully AAO X4. Speech is clear and pt is able to make his needs known. No c/o pain or discomfort at this time. Skin is warm and dry to touch. No signs or symptoms of hypoglycemia or hyperglycemia noted. Saline lock is patent in RFA without any signs of infiltration. Rt foot dressing is dry and intact. Fall and safety precautions are in place. Call light is with pt and bed alarm is on. Bed is in the lowest and locked positions. Pt was instructed to call for assistance as needed and pt verbalized understanding. Will continue to monitor pt.
[2016-08-26] MEDS: TEMAZEPAM 15 MG CAPSULE PO SCH (21:00)
--- NOTE | 2016-08-26 21:25 | NUR ---
Blood Sugar Accucheck 192. Skin remains warm and dry to touch. Pt refused sliding scale Regular Insulin coverage. Pt was offered HS snacks, but pt declined.
[2016-08-26] MEDS: ENOXAPARIN SODIUM 40 MG/0.4 ML SYRINGE SUBCUT SCH (21:28)
--- NOTE | 2016-08-26 22:58 | NUR ---
Pain Medication Dilaudid 2mg was given IV for c/o Rt foot pain with good effect.
[2016-08-27] VITALS (7 sets, daily range): BP systolic 116–138
--- NOTE | 2016-08-27 02:00 | NUR ---
Rounds Pt is sleeping comfortably in bed. Call light is with pt and bed alarm is on.
[2016-08-27] MEDS: HYDROmorphone 2 MG/ML VIAL IVP PRN ×5 (03:03→21:00)
--- NOTE | 2016-08-27 03:03 | NUR ---
Pain Medication Dilaudid 2mg was given IV for c/o Rt foot pain with good effect.
--- NOTE | 2016-08-27 05:00 | NUR ---
Rounds Pt is sleeping comfortably in bed. Call light is with pt and bed alarm is on.
[2016-08-27] MEDS: CLINDAMYCIN 600 mg/50mL D5W 50 ML IV SCH ×3 (06:12→23:07)
--- NOTE | 2016-08-27 06:45 | NUR ---
Closing Note Pt is resting quietly in bed. All pt's needs were attended to. No fall or injury noted this shift. Accucheck 166 this AM and pt refused Regular Insulin sliding scale coverage. Skin remains warm and dry to touch. Will endorse to day shift nurse.
--- NOTE | 2016-08-27 07:30 | NUR ---
INITIAL NOTE PATIENT IS ALERT AND ORIENTED X4, PATIENT IS RESTING IN BED, ASSESSMENT COMPLETE, PATIENT HAS IV ON RIGHT FOREARM SALINE LOCK, FLUSHES WELL, PATIENT HAS DRESSING TO RIGHT LOWER LEG AND RIGHT HEEL, WILL DO DRESSING CHANGE TODAY, PATIENT STATES HE IS IN PAIN, WILL MEDICATE WITH PRN MEDICATIONS, INSTRUCTED PATIENT TO USE CALL BADILLO IF ASSISTANCE IS NEEDED, PATIENT VERBALIZED UNDERSTANDING, CALL BADILLO LEFT NEXT TO PATIENT'S HAND, BED IN LOWEST POSITION, SIDE RAILS UP, FALL PRECAUTIONS IN PLACE, WILL CONTINUE TO MONITOR PATIENT.
[2016-08-27] MEDS: CEFTAROLINE FOSAMIL ACETATE 600 MG in NS 250 ML IV SCH ×2 (09:44→20:59)
[2016-08-27] MEDS: GABAPENTIN 300 MG CAPSULE PO SCH ×3 (09:45→21:00)
[2016-08-27] MEDS: risperiDONE 1 MG TABLET (RisperDAL) PO SCH (09:45)
[2016-08-27] MEDS: FERROUS SULFATE 325 MG TABLET.DR PO SCH ×2 (09:45→21:00)
[2016-08-27] MEDS: LACTOBACILLUS RHAMNOSUS GG 1 CAP CAPSULE PO SCH (09:45)
[2016-08-27] MEDS: MULTIVITS,CA,MINERALS/IRON/FA 1 TABLET PO SCH (09:46)
[2016-08-27] MEDS: SERTRALINE HCL 50 MG TABLET PO SCH ×2 (09:46→20:59)
[2016-08-27] MEDS: LIPASE/PROTEASE/AMYLASE 1 CAP PO SCH ×3 (09:46→21:00)
[2016-08-27] MEDS: NEOMY SULF/BACITRAC ZN/POLY 14.2 GM OINT..GM. TP SCH ×2 (09:47→22:00)
[2016-08-27] MEDS: BALSAM PERU/CASTOR OIL 60 GM OINT...G. TP SCH (09:48)
[2016-08-27] MEDS: MUPIROCIN 2% TOPICAL OINTMENT 22 GM TP SCH ×2 (09:48→21:00)
--- NOTE | 2016-08-27 09:53 | NUR ---
MEDICATIONS PATIENT RECEIVED MORNING MEDICATIONS, INFORMED PATIENT OF POTENTIAL SIDE EFFECTS OF MEDICATIONS, PATIENT REFUSED LEVEMIR THIS MORNING, EDUCATED PATIENT ON REASONS FOR MEDICATIONS AND REASONS WHY IT IS IMPORTANT, PATIENT VERBALIZED UNDERSTANDING, AND STATES HE DOES NOT WANT TO TAKE, NO OTHER NEEDS AT THIS TIME, FALL PRECAUTIONS IN PLACE
--- NOTE | 2016-08-27 10:00 | NUR ---
WOUND CARE 1) Right Plantar Heel: Diabetic Ulcer, Sharifa-wound callused, with dry flaky skin, yellow. Cleansed wound with normal saline. Placed sure prep onto sharifa-wound. Venelex ointment onto the wound bed. Packed wound with 1/4 inch iodoform. Covered with foam dressing. Wrapped with Soco wrap. 2) Right Proximal Anterior Lateral Caldera: Open bulla with small yellow drainage. One small red discolored spot present Cleansed wound with normal saline. Pat dry. Put sure prep on periwound. Applied Xeroform dressing to site, covered with nonadherent pad, and wrapped with Soco wrap. Secured with tape. 3) Right plantar foot, inferior to metatarsal heads: Appears to be a large closed bulla. No odor, no drainage. 4) Right Foot, Superior and Posterior to Lateral Malleolus: Appears to be a chronic wound, present on admission. No odor, no drainage. Dry, stable. 5) Right leg cleaned leg with peroxide and applied antibiotic ointment onto leg and left NS compress on leg, will removed in two hours
[2016-08-27] MEDS: INSULIN REGULAR, HUMAN 100 UNITS/ML, 10 ML VIAL (novoLIN R) SUBCUT PRN ×2 (12:22→16:33)
--- NOTE | 2016-08-27 12:24 | NUR ---
RN ROUNDS PATIENT WAS GIVEN PRN PAIN MEDICATION FOR PAIN, AND INSULIN FOR COVERAGE OF BS BEING 310, NO OTHER NEEDS AT THIS TIME, WILL CONTINUE TO MONITOR.
--- NOTE | 2016-08-27 14:31 | NUR ---
RN ROUNDS PATIENT IS CURRENTLY RESTING IN BED, FAMILY AT BEDSIDE, CONNECTED PATIENT TO PUMP FOR IV ANTIBIOTIC, INFORMED PATIENT TO CALL IF SWELLING OR REDNESS IS SEEN, PATIENT STATED HE UNDERSTANDS, NO OTHER NEEDS AT THIS TIME, WILL CONTINUE TO MONITOR.
[2016-08-27] MEDS: FLUCONAZOLE 200 mg/ NS 100 ML IV SCH (15:06)
[2016-08-27] MEDS: SOD FERRIC GLUC COMPLEX/SUC 125 MG in NS 100 ML IV SCH (16:25)
--- NOTE | 2016-08-27 16:35 | NUR ---
RN ROUNDS PATIENT IS CURRENTLY RESTING IN BED, NO SIGNS OF DISTRESS NOTED, PATIENT WAS GIVEN PAIN MEDICATION AND WILL BE GIVEN INSULIN FOR COVERAGE.
--- NOTE | 2016-08-27 18:30 | NUR ---
RN ROUNDS PATIENT IS CURRENTLY RESTING IN BED, NO SIGNS OF DISTRESS NOTED, NO COMPLAINTS OF PAIN THIS TIME, ALL NEEDS MET, WILL ENDORSE PATIENT TO IMAGE CONSULTANT NURSE, CALL BADILLO WITHIN REACH, BED IN LOWEST POSITION, BED ALARM ON, FALL PRECAUTIONS IN PLACE.
--- NOTE | 2016-08-27 20:00 | NUR ---
PM ASSESSMENT PT. A/OX4, VITAL SIGNS STABLE, NO DISTRESS NOTED, DENIES PAIN AT THIS TIME, NOTED WITH DRESSING TO RIGHT LOWER EXTREMITY, DRESSING IS CLEAN, DRY, INTACT. UPDATED WITH PLAN OF CARE, ISOLATION PRECAUTIONS MAINTAINED, BED IN LOWEST POSITION, CALL LIGHT WITHIN REACH.
[2016-08-27] MEDS: ENOXAPARIN SODIUM 40 MG/0.4 ML SYRINGE SUBCUT SCH (21:00)
[2016-08-27] MEDS: TEMAZEPAM 15 MG CAPSULE PO SCH (21:00)
--- NOTE | 2016-08-27 21:00 | NUR ---
PAIN PT. C/O SEVERE ACHING PAIN TO R. FOOT RATED 7/10, DILAUDID 2 MG IVP GIVEN ORDERED. VITAL SIGNS STABLE, CALL LIGHT WITHIN REACH, BED IN LOWEST POSITION.
--- NOTE | 2016-08-27 21:30 | NUR ---
ACCUCHECK BLOOD ULBIZ=[id number], NO COVERAGE REQUIRED.
--- NOTE | 2016-08-27 23:15 | NUR ---
DR. JUNIOR PACHECO AT BEDSIDE.
[2016-08-28 00:31] VITALS: BP_SYST 129
[2016-08-28] MEDS: HYDROmorphone 2 MG/ML VIAL IVP PRN ×6 (01:06→22:07)
--- NOTE | 2016-08-28 01:06 | NUR ---
PAIN PT. C/O SEVERE PAIN TO R. FOOT, DILAUDID 2 MG IVP GIVEN ORDERED. VITAL SIGNS STABLE, CALL LIGHT WITHIN REACH.
--- NOTE | 2016-08-28 03:05 | NUR ---
RN ROUNDS PT. RESTING QUIETLY, VITAL SIGNS STABLE, NO DISTRESS NOTED, DENIES PAIN. CALL LIGHT WITHIN REACH, BED IN LOWEST POSITION.
[2016-08-28 04:00] VITALS: BP_SYST 122
[2016-08-28] MEDS: CLINDAMYCIN 600 mg/50mL D5W 50 ML IV SCH ×2 (05:00→13:36)
--- NOTE | 2016-08-28 05:00 | NUR ---
RN ROUNDS PT. RESTING QUIETLY, VITAL SIGNS STABLE, NO DISTRESS NOTED, DENIES PAIN. CALL LIGHT WITHIN REACH, BED IN LOWEST POSITION.
--- NOTE | 2016-08-28 06:00 | NUR ---
ACCUCHECK BLOOD FNXSZ=[id number], 4 UNITS REGULAR INSULIN GIVEN ORDERED.
[2016-08-28] MEDS: INSULIN REGULAR, HUMAN 100 UNITS/ML, 10 ML VIAL (novoLIN R) SUBCUT PRN ×3 (06:06→21:56)
--- NOTE | 2016-08-28 06:38 | NUR ---
CLOSING NOTES PT. SLEEPING AT THIS TIME, VITAL SIGNS STABLE, NO DISTRESS NOTED, DENIES PAIN, CALL LIGHT WITHIN REACH, BED IN LOWEST POSITION.
[2016-08-28 08:10] VITALS: BP_SYST 118
[2016-08-28] MEDS: BALSAM PERU/CASTOR OIL 60 GM OINT...G. TP SCH (09:00)
[2016-08-28] MEDS: NEOMY SULF/BACITRAC ZN/POLY 14.2 GM OINT..GM. TP SCH (09:00)
--- NOTE | 2016-08-28 09:30 | NUR ---
Routine Scheduled IV ABX, scheduled insulin, and po meds given per order. Patient requested pain med for 9/10 pain in right lower extremity. Due pain med given per order. Patient stable at this time.
[2016-08-28] MEDS: CEFTAROLINE FOSAMIL ACETATE 600 MG in NS 250 ML IV SCH ×2 (09:32→21:49)
[2016-08-28] MEDS: FERROUS SULFATE 325 MG TABLET.DR PO SCH ×2 (09:32→21:48)
[2016-08-28] MEDS: GABAPENTIN 300 MG CAPSULE PO SCH ×3 (09:32→21:48)
[2016-08-28] MEDS: MULTIVITS,CA,MINERALS/IRON/FA 1 TABLET PO SCH (09:33)
[2016-08-28] MEDS: risperiDONE 1 MG TABLET (RisperDAL) PO SCH (09:33)
[2016-08-28] MEDS: LIPASE/PROTEASE/AMYLASE 1 CAP PO SCH ×3 (09:33→21:48)
[2016-08-28] MEDS: SERTRALINE HCL 50 MG TABLET PO SCH ×2 (09:34→21:48)
[2016-08-28] MEDS: MUPIROCIN 2% TOPICAL OINTMENT 22 GM TP SCH ×2 (09:35→21:50)
[2016-08-28 12:00] VITALS: BP_SYST 115
--- NOTE | 2016-08-28 12:40 | NUR ---
Routine Checked blood sugar: 55 mg/dl - gave orange juice to patient. Will recheck blood sugar. Patient resting in bed; asymptomatic.
--- NOTE | 2016-08-28 13:20 | NUR ---
WOUND RE-EVALUATION: Patient received in a [place] Bed with an Isoflex JUNIOR mattress with low air loss therapy initiated, awake, alert, and oriented. Patient is unable to turn independently. Chucky Score is a 14. Microbiology: Blood culture 2 negative. Intrinsic factors that delay wound healing: Extrinsic factors that delay wound healing: Decreased mobility. Wound Assessment: 1) Right Plantar Heel: Diabetic Ulcer, present on admission. Wound bed is 40% yellow tissue, 60% dull red tissue. No odor, scant yellow drainage. Татьяна-wound callused, with dry flaky skin, yellow. Measures 3.0 cm x 4.0 cm x 1.5 cm. Extremity is very warm to touch, whereas left lower extremity is cool to touch. Dry, flaky skin present on right ankle, right dorsal foot, and right lower extremity. 1+ pitting edema present. Fourth and fifth toes have old amputation sites. Erythema and calor extends to right lateral distal thigh. Recommend continue: Cleanse wound with normal saline. Place sure prep onto татьяна-wound. Venelex ointment onto the wound bed. Pack wound with 1/4 inch iodoform. Cover with foam dressing. Wrap with Soco wrap. Perform wound care daily, and as needed for dressing soiling or dislodgement. 2) Right Proximal Anterior Lateral Caldera: Open bulla with small yellow drainage. One small red discolored spot present, measuring 1.4 cm x 1.0 cm. No odor, no drainage. Light pink colored tissue surrounding wound, with red colored tissue surrounding pink colored tissue. Recommend continue as ordered by Dr. Escalante: Cleanse wound with Hydrogen Peroxide. Put sure prep on periwound. Put antibiotic ointment onto site. Cover with foam dressing, and wrap with Soco wrap. Secure with tape. Cover with warm NSS Compress. Perform wound care BID, and as needed for dressing soiling or dislodgement. 3) Right plantar foot, inferior to metatarsal heads: Appears to be a large closed bulla, extending from medial foot to plantar foot. Measures 9.5 cm x 9.5 cm. No odor, no drainage. Recommend: No dressing needed. Continue to monitor site every shift. Consult wound care nurse is area opens or worsens. 4) Right Foot, Superior and Posterior to Lateral Malleolus: Appears to be a chronic wound, present on admission. No odor, no drainage. Dry, stable. Measures 1.0 cm x 1.0 cm. Recommend continue: No dressing needed. Continue to monitor site every shift. Consult wound care nurse if area worsens. Also recommend continue: Reposition patient [id number] only every 2 hours with pillow support and off-load pressure areas with pillows for pressure re-distribution. Offload, elevate and float bilateral heels with pillows. Perform skin care and monitor skin integrity Q shift. Use moisture barrier cream on buttocks and other moisture susceptible areas QID and as needed for soiling. Maintain patient on a low air-loss mattress. Dr. Escalante on the case for surgical consult, suspects osteomyelitis, and is planning for possible below knee amputation, possibly on 08/29/16.
--- NOTE | 2016-08-28 16:20 | NUR ---
Routine Scheduled medications given per order. Patient stable at this time. No complaint of pain.
[2016-08-28 16:47] VITALS: BP_SYST 133
--- NOTE | 2016-08-28 18:00 | NUR ---
Routine Scheduled IV ABX given. Checked blood sugar: 82 mg/dl. Patient sitting in bed about to eat dinner. Patient requested pain med for 10/10 pain in right lower extremity. Due pain med given per order. Patient stable at this time.
[2016-08-28] MEDS: FLUCONAZOLE 200 mg/ NS 100 ML IV SCH (18:04)
[2016-08-28] MEDS: SOD FERRIC GLUC COMPLEX/SUC 125 MG in NS 100 ML IV SCH (19:21)
[2016-08-28 19:45] VITALS: BP_SYST 131
--- NOTE | 2016-08-28 19:45 | NUR ---
INITIAL NOTE Patient resting on the bed comfortable. No acute distress. Respiration even and unlabored. AO x 4. Denied of pain. Skin warm and dry to touch. IV intact to right hand, no redness, no swelling. On contact isolation for MRSA of nares. Discussed the safety issue, use call light when need help, and plan of care, verbally understanding. Safety measure maintained. Bed in low position, bed alarm on, side rails up. Call light within reached. Will continue to monitor.
--- NOTE | 2016-08-28 20:10 | NUR ---
DR. JURADO [facility] Dr. Jurado visited, talked to patient at bedside. Dr. Jurado also talked to Dr. Escalante via phone regarding the surgery. Dr. Jurado stated that "keep the patient NPO after midnight until Dr. Escalante come tomorrow. Hold Lovenox tonight."
--- NOTE | 2016-08-28 20:19 | NUR ---
OFF UNIT FOR SMOKE Patient off unit for smoke with S[employer]VER [employer] via wheelchair. No acute distress and in stable condition.
--- NOTE | 2016-08-28 20:32 | NUR ---
BACK TO UNIT Patient back to unit in stable. No acute distress. Back to bed. Safety measure maintained. Call light within reached. will continue to monitor.
[2016-08-28] MEDS: TEMAZEPAM 15 MG CAPSULE PO SCH (21:48)
--- NOTE | 2016-08-28 21:50 | NUR ---
REFUSED INSULIN FH=807vu/dL, patient refused insulin and stated "I don't want it, anyway I will not eating after midnight. My sugar was low this morning."
--- NOTE | 2016-08-28 22:07 | NUR ---
DILAUDID GIVEN Patient c/o right foot pain 12/14. Dilaudid 2mg IVP given as ordered. No acute distress. Safety measure maintained. Call light within reached. Will continue to monitor.
[2016-08-29] VITALS: BP_SYST 118
--- NOTE | 2016-08-29 02:05 | NUR ---
IV RE-INSERTION: IV dislodged. IV tip intact, no bleeding. Restarted on right wrist with gauge 22. Successful after two attempts. Will observe for any signs of infiltration.
[2016-08-29] MEDS: HYDROmorphone 2 MG/ML VIAL IVP PRN ×5 (02:10→23:20)
--- NOTE | 2016-08-29 02:10 | NUR ---
DILAUDID GIVEN Patient c/o right foot pain 10/13. Dilaudid 2mg IVP given as ordered. No acute distress. Safety measure maintained. Call light within reached. Will continue to monitor.
--- NOTE | 2016-08-29 03:54 | NUR ---
ROUND Patient sleeping at this time. No acute distress. Respiration even and unlabored. Safety measure maintained. Bed in low position, bed alarm on, side rails up. Call light within reached. Continue to monitor.
[2016-08-29 04:28] VITALS: BP_SYST 121
--- NOTE | 2016-08-29 05:10 | NUR ---
ROUND Patient sleeping comfortable. No acute distress. Respiration even and unlabored. Safety measure maintained. Bed in low position, bed alarm on, side rails up. Call light within reached. Continue to monitor.
[2016-08-29] MEDS: INSULIN REGULAR, HUMAN 100 UNITS/ML, 10 ML VIAL (novoLIN R) SUBCUT PRN ×2 (06:35→22:08)
[2016-08-29 06:52] LABS: HEMATOCRIT 26.8 % (36-54); HEMOGLOBIN 8.8 g/dL (14.0-18.0); MEAN CORPUSCULAR HEMOGLOBIN 28 pg (27-31); MEAN CORPUSCULAR HGB CONC 33 % (32-36); MEAN CORPUSCULAR VOLUME 84 fL (79.0-98.0); PLATELET COUNT (AUTO) 406 K/uL (130-430); RED BLOOD CELL COUNT(AUTO) 3.18 MIL/uL (4.2-6.2); RED CELL DISTRIBUTION WIDTH 15.3 % (9.0-15.0)
--- NOTE | 2016-08-29 06:52 | NUR ---
CLOSING NOTE Patient resting on the bed. No acute distress. Respiration even and unlabored. Dilaudid 2mg IVP given as ordered for patient c/o right foot pain 10/13. Skin warm and dry to touch. IV intact to right hand, no redness, no swelling. On contact isolation for MRSA of nares. NPO since midnight. BK=850uo/dL this morning, patient refused insulin and stated "I don't want it because I did not eat after midnight." All needs met. Hourly rounding during shift. Safety measure maintained. Bed in low position, bed alarm on, side rails up. Call light within reached. Will endorse to morning shift nurse.
[2016-08-29 06:54] LABS: CREATININE 0.77 mg/dL (0.55-1.30); POTASSIUM 3.6 mmol/L (3.5-5.1)
[2016-08-29 06:57] LABS: WHITE BLOOD COUNT (AUTO) 32.5 K/uL (4.8-10.8)
[2016-08-29 07:39] LABS: INR 1.3 (0.80-1.20); PROTHROMBIN TIME 14.5 SECS (9.5-12.5)
--- NOTE | 2016-08-29 08:09 | NUR ---
MIN NERI NOT CALL BACK YET Dr. Jurado still not call back yet regarding the critical lab result, WBC=32.5. First call at 0700 and called again. Endorse to morning shift nurse to follow up.
[2016-08-29 08:44] LABS: ATYPICAL LYMPHOCYTES % 0 % (0-0); BAND % (MANUAL) 0 % (0-6); BASOPHILS % (MANUAL) 0 % (0-2); EOSINOPHILS % (MANUAL) 0 % (0-7); LYMPHOCYTES % (MANUAL) 4 % (20-46); MONOCYTES % (MANUAL) 2 % (0-11)
[2016-08-29] MEDS: risperiDONE 1 MG TABLET (RisperDAL) PO SCH (09:00)
[2016-08-29] MEDS: GABAPENTIN 300 MG CAPSULE PO SCH ×3 (09:00→22:02)
[2016-08-29] MEDS: FERROUS SULFATE 325 MG TABLET.DR PO SCH ×2 (09:00→22:02)
[2016-08-29] MEDS: CEFTAROLINE FOSAMIL ACETATE 600 MG in NS 250 ML IV SCH (09:00)
[2016-08-29] MEDS: LIPASE/PROTEASE/AMYLASE 1 CAP PO SCH ×3 (09:00→22:02)
[2016-08-29] MEDS: SERTRALINE HCL 50 MG TABLET PO SCH ×2 (09:00→22:02)
[2016-08-29] MEDS: MULTIVITS,CA,MINERALS/IRON/FA 1 TABLET PO SCH (09:00)
[2016-08-29] MEDS: MUPIROCIN 2% TOPICAL OINTMENT 22 GM TP SCH ×2 (10:01→22:56)
[2016-08-29] MEDS: BALSAM PERU/CASTOR OIL 60 GM OINT...G. TP SCH (10:02)
[2016-08-29] MEDS: NEOMY SULF/BACITRAC ZN/POLY 14.2 GM OINT..GM. TP SCH ×2 (10:08→22:03)
[2016-08-29 12:33] VITALS: BP_SYST 115
[2016-08-29 15:29] LABS: BILIRUBIN,URINE NEGATIVE (NEGATIVE); BLOOD, URINE 1+ (NEGATIVE); CLARITY/URINE CLEAR (CLEAR); COLOR,URINE YELLOW (YELLOW); GLUCOSE,URINE NEGATIVE (NEGATIVE); KETONES,URINE 1+ (NEGATIVE); LEUKOCYTE ESTERASE ,URINE NEGATIVE (NEGATIVE); NITRITE, URINE NEGATIVE (NEGATIVE); PROTEIN URINE 1+ (NEGATIVE); UROBILINOGEN,URINE 0.2 (0.2-1.0)
[2016-08-29 15:43] LABS: BACTERIA,URINE FEW /HPF (None Seen); CALCIUM OXALATE CRYSTALS,UR 0-10 /HPF (None Seen); MUCUS,URINE None Seen /LPF (None Seen); RBC,URINE NONE SEEN /HPF (0-3); WBC,URINE 0-3 /HPF (0-3)
[2016-08-29] MEDS: SOD FERRIC GLUC COMPLEX/SUC 125 MG in NS 100 ML IV SCH (16:00)
[2016-08-29] MEDS ORDERED: ONDANSETRON HCL 4 MG/2 ML VIAL IVP ONE (17:15)
[2016-08-29] MEDS ORDERED: fentaNYL CITRATE 250 MCG/5 ML AMP IV ONE (17:15)
[2016-08-29] MEDS ORDERED: MIDAZOLAM HCL 5 MG/5 ML VIAL IVP ONE (17:15)
[2016-08-29] MEDS ORDERED: PROPOFOL 200MG/ 20ML VIAL (DIPRIVAN) IV ONE (17:15)
[2016-08-29] MEDS ORDERED: SEVOFLURANE 15 MIN GAS INH ONE (17:15)
[2016-08-29] MEDS ORDERED: NS 1000 ML BAG IV ONE (17:15)
[2016-08-29] MEDS ORDERED: WATER FOR IRRIGATION,STERILE 1,000 ML IRRIG.SOLN IR ONE (17:15)
[2016-08-29] MEDS ORDERED: ROCURONIUM BROMIDE 10 MG/ML (ZEMURON) IV ONE (17:15)
[2016-08-29] MEDS ORDERED: NACL 0.9% 1,000 ML IV SCH (18:11)
[2016-08-29] MEDS ORDERED: METOCLOPRAMIDE HCL 10 MG/2 ML VIAL IVP PRN (18:15)
[2016-08-29] MEDS ORDERED: MORPHINE 2 MG/ML INJ. SYRINGE IVP PRN ×3 (18:15)
[2016-08-29 19:55] VITALS: BP_SYST 121
--- NOTE | 2016-08-29 19:55 | NUR ---
INITIAL NOTE Patient resting on the bed. No acute distress. Respiration even and unlabored. AO x 4. Skin warm and dry to touch. IV intact to right wrist and left hand, no redness, no swelling. On contact isolation for MRSA of nares. Per morning shift nurse patient back for surgery I and D on right knee at 1910. Patient did not amputate the right leg. ROSANA drain intact to right knee with drainage pinkish color of output. Dressing intact and dry. Discussed the safety issue, use call light when need help, and plan of care, verbally understanding. Safety measure maintained. Bed in low position, bed alarm on, side rails up. Call light within reached. Will continue to monitor.
[2016-08-29] MEDS: AMPICILLIN SODIUM/SULBACTAM NA 1.5 GM in NS 50 ML IV SCH (20:14)
--- NOTE | 2016-08-29 20:49 | NUR ---
PAGED PAGED DOCTOR JUNIOR FOR ORDERS SPOKE WITH SHLOMO
[2016-08-29] MEDS: TEMAZEPAM 15 MG CAPSULE PO SCH (22:01)
[2016-08-29] MEDS: metroNIDAZOLE 500 MG TABLET PO SCH (22:02)
--- NOTE | 2016-08-29 22:03 | NUR ---
RECEIVED CALL BACK FROM MIN NERI Informed Dr. Jurado patient back to unit and amputation not done to patient. Patient only did I and D with ROSANA drain. The morning shift gave one unit of blood, Hgb this morning was 8.8, asked if the patient need the second bay of blood transfusion. Dr. Jurado stated that "yes."
--- NOTE | 2016-08-29 23:01 | NUR ---
BLOOD TRANSFUSION STARTED.
--- NOTE | 2016-08-29 23:10 | NUR ---
CALLED MIN NERI REGARDING [id number] Jurado SL=[id number], 12 units of regular insulin given and rechecked NF=539. Dr. Jurado stated "That is okay, just give insulin."
--- NOTE | 2016-08-29 23:20 | NUR ---
ROUND Patient resting on the bed. No allergy reaction for blood transfusion. No acute distress. Safety measure maintained. Call light within reached. Will continue to monitor.
[2016-08-30] VITALS (7 sets, daily range): BP systolic 126–143
[2016-08-30] MEDS: AMPICILLIN SODIUM/SULBACTAM NA 1.5 GM in NS 50 ML IV SCH ×5 (00:53→23:02)
--- NOTE | 2016-08-30 01:00 | NUR ---
ROUND Patient resting on the bed with eyes closed. No allergy reaction for blood transfusion. No acute distress. Safety measure maintained. Bed in low position, bed alarm on, side rails up. Call light within reached. Will continue to monitor.
--- NOTE | 2016-08-30 01:51 | NUR ---
BLOOD TRANSFUSION COMPLETED, NO ALLERGY REACTION NOTED.
[2016-08-30] MEDS: HYDROmorphone 2 MG/ML VIAL IVP PRN ×5 (03:24→21:14)
[2016-08-30 06:43] LABS: ALANINE AMINOTRANSFERASE 15 U/L (12-78); ALBUMIN 1.3 g/dL (3.4-4.8); ASPARTATE AMINOTRANSFERASE 19 U/L (10-37); CALCIUM 8.2 mg/dL (8.4-11.0); CHLORIDE 101 mmol/L (98-107); GLUCOSE 331 mg/dL (70-99); POTASSIUM 4.1 mmol/L (3.5-5.1); SODIUM SERUM 134 mmol/L (136-145); TOTAL BILIRUBIN 0.2 mg/dL (0.0-1.0); TOTAL PROTEIN, SERUM 6.7 g/dL (6.4-8.3); UREA NITROGEN, BLOOD 13 mg/dL (8-21)
[2016-08-30] MEDS: metroNIDAZOLE 500 MG TABLET PO SCH ×3 (06:43→21:12)
[2016-08-30 06:47] LABS: BASOPHILS # (AUTO) 0.2 K/uL (0.0-0.2); BASOPHILS % (AUTO) 0.9 % (0.0-2.0); EOSINOPHILS % (AUTO) 0.1 % (0.0-4.0); HEMATOCRIT 33.3 % (36-54); HEMOGLOBIN 10.8 g/dL (14.0-18.0); LYMPHOCYTES # (AUTO) 1.5 K/uL (1.0-5.5); MEAN CORPUSCULAR HEMOGLOBIN 28 pg (27-31); MEAN CORPUSCULAR HGB CONC 32 % (32-36); MEAN CORPUSCULAR VOLUME 85 fL (79.0-98.0); MONOCYTES # (AUTO) 0.6 K/uL (0.0-1.0); MONOCYTES % (AUTO) 2.3 % (1.7-9.3); NEUTROPHILS # (AUTO) 23.4 K/uL (1.8-7.7); NEUTROPHILS % (AUTO) 90.7 % (40.0-70.0); PLATELET COUNT (AUTO) 365 K/uL (130-430); RED BLOOD CELL COUNT(AUTO) 3.91 MIL/uL (4.2-6.2); RED CELL DISTRIBUTION WIDTH 14.3 % (9.0-15.0); WHITE BLOOD COUNT (AUTO) 25.6 K/uL (4.8-10.8)
--- NOTE | 2016-08-30 06:55 | NUR ---
CLOSING NOTE Patient resting on the bed. No acute distress. Respiration even and unlabored. Skin warm and dry to touch. IV intact to right wrist and left hand, no redness, no swelling. On contact isolation for MRSA of nares. ROSANA drain intact to right knee with drainage brownish color of output. Dressing intact and dry. KI=459, 10 unit regular insulin given as ordered. All needs met. Hourly rounding during shift. Safety measure maintained. Bed in low position, bed alarm on, side rails up. Call light within reached. Will endorse to morning shift nurse.
[2016-08-30] MEDS: INSULIN REGULAR, HUMAN 100 UNITS/ML, 10 ML VIAL (novoLIN R) SUBCUT PRN ×2 (06:56→11:52)
[2016-08-30 07:00] LABS: ANION GAP < 3 (5-15); GFR AFRICAN AMERICAN 136 mL/min (>90)
--- NOTE | 2016-08-30 08:00 | NUR ---
OPENING NOTE PT IS AWAKE AND SITTING UP IN BED, A/O X 4. PT IS EXPERIENCING PAIN 10/13 DUE TO HIS Dx OF CELLULITIS TO THE LOWER EXTREMITIES WELL YESTERDAY'S I&D TO HIS LOWER LEFT LEG. ASIDE FROM HIS PAIN, VS STABLE AND PATIENT IS COOPERATIVE. WOUND AND SURGICAL DRESSINGS ARE DRY, CLEAN AND INTACT. I WILL ADMINISTER DILAUDID AND CONTINUE TO MONITOR HIS PAIN. THE PLAN TODAY IS TO UPGRADE HIS DIET TOLERATED AND PAIN MANAGEMENT
--- NOTE | 2016-08-30 08:45 | NUR ---
DR BETH AT BEDSIDE TOLD PATIENT HE PLANS TO DISCHARGE HIM BACK TO [facility] TO CONTINUE HIS ANTIBIOTIC THERAPY, AND THEN HE WILL SCHEDULE HIM TO RETURN TO HAVE HIS RIGHT LEG AMPUTATION PROCEDURE ORIGINALLY PLANNED. DR BETH ALSO TOLD HIM HE WOULD SCHEDULE THE INSERTION OF A PICC LINE, BUT DID NOT PLACE THE ORDER AT THIS TIME
[2016-08-30] MEDS: LIPASE/PROTEASE/AMYLASE 1 CAP PO SCH ×3 (09:00→21:12)
[2016-08-30] MEDS: SERTRALINE HCL 50 MG TABLET PO SCH ×2 (09:00→20:54)
--- NOTE | 2016-08-30 09:00 | NUR ---
[facility] DELAYED MEDICATION IS NOT IN THE MED ROOM, NOR IS IT AT BEDSIDE. i CALLED SCAR AT THE PHARMACY TO REQUEST ANOTHER DOSE, AND WILL ADMINISTER IT UPON RECEIPT.
[2016-08-30] MEDS: GABAPENTIN 300 MG CAPSULE PO SCH ×3 (09:02→20:54)
[2016-08-30] MEDS: MULTIVITS,CA,MINERALS/IRON/FA 1 TABLET PO SCH (09:02)
[2016-08-30] MEDS: risperiDONE 1 MG TABLET (RisperDAL) PO SCH (09:03)
[2016-08-30] MEDS: FERROUS SULFATE 325 MG TABLET.DR PO SCH ×2 (09:03→20:54)
[2016-08-30] MEDS: NEOMY SULF/BACITRAC ZN/POLY 14.2 GM OINT..GM. TP SCH ×2 (09:04→21:13)
[2016-08-30] MEDS: BALSAM PERU/CASTOR OIL 60 GM OINT...G. TP SCH (09:05)
--- NOTE | 2016-08-30 10:00 | NUR ---
ROUNDS PT IS IN BED WITH HIS EYES CLOSED AND APPEARS TO BE SLEEPING.
--- NOTE | 2016-08-30 12:00 | NUR ---
ROUNDS PT IS IN BED AND APPEARS TO BE SLEEPING
[2016-08-30] MEDS: MUPIROCIN 2% TOPICAL OINTMENT 22 GM TP SCH ×2 (13:09→21:12)
--- NOTE | 2016-08-30 14:00 | NUR ---
ROUNDS PT IS RESTING IN BED, WATCHING TV. HE STATES HIS 1300 DILAUDID WORKED WELL AND HE IS NO LONGER IN PAIN
--- NOTE | 2016-08-30 14:46 | NUR ---
Discharge Planning Met with patient and Dr Patiño at bedside to discuss dc plan. Patient stated that he wanted to return to [facility]. He would rather not discharge to [facility] at this time. buttermaker plan is to discharge on IV ABX then return in about 2 weeks for surgery for BKA. Patient states that after he has surgery he would be agreeable to [facility] but at this time wants to return to SNF. Dr Patiño agreed that this was an appropriate discharge plan. I contacted [facility] and spoke with nursing dry starch supervisor who stated that patient's bed was being held for him. I told her anticipated return would be in the next day or two. [facility] asked to have packet faxed to [phone]. Packet faxed.
--- NOTE | 2016-08-30 16:00 | NUR ---
ROUNDS/HYPOGLYCEMIA PT PRESENTED S/S OF HYPOGLYCEMIA, SO I CHECKED HIS BLOOD SUGAR WHICH WAS 33. i ADMINISTERED THE DEXTROSE PER PRESCRIBED PROTOCOL AND WILL REMAIN FOR THE PATIENT FOR 15 MINUTES AND THEN RETEST.
[2016-08-30] MEDS: DEXTROSE 50% JECT 50 ML DISP.SYRIN IVP PRN ×2 (16:11→20:46)
--- NOTE | 2016-08-30 16:15 | NUR ---
BLOOD SUGAR CHECK PT STOPPED DISPLAYING S/S OF HYPOGLYCEMIA APPROXIMATELY 10 MINUTES AFTER THE DEXTROSE ADMINISTRATION. I RECHECKED HIS BLOOD SUGAR, WHICH WAS 117. I WILL CONTINUE TO MONITOR
--- NOTE | 2016-08-30 18:00 | NUR ---
ROUNDS PT IS EATING DINNER AND SAID HE FEELS MUCH BETTER. HIS CURRENT BLOOD SUGAR LEVEL IS 100
--- NOTE | 2016-08-30 19:00 | NUR ---
closing note pt is resting in bed and appears to be sleeping. he has yet to eat his dinner but he has had a hectic day so i chose not to wake him. Report endorsed at bedside to Oralia
--- NOTE | 2016-08-30 20:00 | NUR ---
DIAPER/UNDERPANTS Late entry due to pt. care. Pt. was educated on his usage on his diaper/underpants and increased risk for skin breakdown. Pt. verbalized understanding but requested to keep them on and stated he brought his own package to use while here at the hospital.
--- NOTE | 2016-08-30 20:03 | NUR ---
OPENING NOTE Pt. and bedside report received from day shift nurse. Pt. is resting quietly in bed with eyes closed; Respiratons are even and unlabored with visible chest rise and fall. Multiple wounds noted with dressings on. Safety, fall and contact isolation precautions in place. Incentive spirometer, bedside commode and urinal all present. Call light to right hand. Will continue to monitor.
--- NOTE | 2016-08-30 20:40 | NUR ---
HYPOGLYCEMIA/PROTOCOL INITIATED Late entry due to pt. care. Pt. c/o feeling weak. Pt.'s blood sugar was 34; 1 amp of D50 given as ordered PRN. See EMAR. Educated pt. and encouraged him to eat food; snacks given. Pt. stated he did not eat much of his dinner because "it wasn't what [he] ordered." Will notify MD and continue to monitor.
[2016-08-30] MEDS: TEMAZEPAM 15 MG CAPSULE PO SCH (21:00)
--- NOTE | 2016-08-30 21:11 | NUR ---
BLOOD SUGAR RECHECK Blood sugar 109; educated pt. regarding taking snacks. Will continue to monitor.
--- NOTE | 2016-08-30 21:14 | NUR ---
PAIN/DUE MEDS Late entry due to pt. care. Pt. c/o severe pain; pt. medicated with Dilaudid IVP given as ordered PRN for severe pain. See eMAR. Due meds administered as ordered, tolerated well. Pt. refused scheduled Restoril medication and stated "[he] doesn't like the way it makes me feel woozy." Educated pt. regarding medication and s/e. Pt. verbalized understanding. Encouraged pt. to use call light for needs and when getting OOB due to fall risk. Pt. stated "you got it, ms. English." Bed alarm on. Will continue to monitor.
--- NOTE | 2016-08-30 21:27 | NUR ---
PAGED PAGED DOCTOR REINALDO WHO IS ROOFER FOR [facility] FOR ORDERS
--- NOTE | 2016-08-30 21:40 | NUR ---
REPORTED TO DR. NAJERA Reported pt.'s blood sugar 34, [address] Najera ordered to change Levemir 20 units order to to 15 units QAM Subcutaneous. Will carry out.
--- NOTE | 2016-08-30 23:56 | NUR ---
DR. NAJERA CALLED Dr. Najera called to ask about pt.'s status and ordered to check pt.'s blood sugar and to make sure pt.'s blood sugar is above 100 and to encouraged pt. to eat and do not give any insulin coverage. Current blood sugar is 106; orange juice, turkey sandwich and chocolate pudding given to patient as requested. Will continue to monitor.
[2016-08-31] VITALS (8 sets, daily range): BP systolic 125–138
[2016-08-31] MEDS: HYDROmorphone 2 MG/ML VIAL IVP PRN ×4 (01:26→21:47)
--- NOTE | 2016-08-31 01:26 | NUR ---
PAIN/ROSANA DRAIN 15mls of serosanguineous drainage emptied from right lower leg ROSANA drain. Pt. c/o "8/10" pain; pt. medicated with Dilaudid IVP as ordered PRN for severe pain. See EMAR. Educated pt. regarding medication and s/e. Pt. verbalized understanding. Safety and fall precautions in place. Encouraged pt. to use call light for needs. Will continue to monitor.
--- NOTE | 2016-08-31 02:41 | NUR ---
ROUNDS Pt. is resting quietly in bed with eyes closed. Respirations are even and unlabored with visible chest rise and fall. No s/s of acute distress. Safety and fall precautions in place. Bed alarm on. Call light to right hand. Will continue to monitor.
[2016-08-31] MEDS: AMPICILLIN SODIUM/SULBACTAM NA 1.5 GM in NS 50 ML IV SCH ×3 (05:28→18:00)
[2016-08-31] MEDS: metroNIDAZOLE 500 MG TABLET PO SCH ×3 (05:28→21:50)
[2016-08-31 06:44] LABS: BASOPHILS # (AUTO) 0.1 K/uL (0.0-0.2); BASOPHILS % (AUTO) 0.3 % (0.0-2.0); EOSINOPHILS % (AUTO) 0.2 % (0.0-4.0); HEMATOCRIT 35.5 % (36-54); HEMOGLOBIN 11.6 g/dL (14.0-18.0); LYMPHOCYTES # (AUTO) 1.7 K/uL (1.0-5.5); LYMPHOCYTES % (AUTO) 8.8 % (20.5-51.5); MEAN CORPUSCULAR HEMOGLOBIN 28 pg (27-31); MEAN CORPUSCULAR HGB CONC 33 % (32-36); MEAN CORPUSCULAR VOLUME 86 fL (79.0-98.0); MONOCYTES # (AUTO) 0.7 K/uL (0.0-1.0); MONOCYTES % (AUTO) 3.4 % (1.7-9.3); NEUTROPHILS # (AUTO) 17.4 K/uL (1.8-7.7); NEUTROPHILS % (AUTO) 87.3 % (40.0-70.0); PLATELET COUNT (AUTO) 425 K/uL (130-430); RED BLOOD CELL COUNT(AUTO) 4.15 MIL/uL (4.2-6.2); RED CELL DISTRIBUTION WIDTH 14.9 % (9.0-15.0); WHITE BLOOD COUNT (AUTO) 19.9 K/uL (4.8-10.8)
[2016-08-31 06:45] LABS: CALCIUM 8.5 mg/dL (8.4-11.0); CHLORIDE 106 mmol/L (98-107); CREATININE 0.81 mg/dL (0.55-1.30); GLUCOSE 76 mg/dL (70-99); SODIUM SERUM 140 mmol/L (136-145); UREA NITROGEN, BLOOD 11 mg/dL (8-21)
--- NOTE | 2016-08-31 06:45 | NUR ---
CHG BATH/SKIN CARE/ROSANA DRAIN/PAIN/DUE MEDS Late entry due to pt. care. Pt. c/o severe pain; pt. was given Dilaudid IVP as ordered PRN for severe pain. Due meds administered as ordered. Accucheck done, blood sugar 101; no insulin was given per sliding scale order. See EMAR. Encouraged pt. to continue eating snacks to prevent hypoglycemia. Pt. verblaized understanding and requested anitha marie. Educated pt. regarding medication and s/e. CHG bath provided. Emptied 10mls of drainage from ROSANA drain. Emptied 400mls of dark yellow urine from urinal. Encouraged pt. to use call light for needs. All needs met throughout shift. Will endorse care to oncoming day shift nurse.
[2016-08-31 06:59] LABS: ANION GAP < 3 (5-15); GFR AFRICAN AMERICAN 134 mL/min (>90)
[2016-08-31 07:17] LABS: INR 1.4 (0.80-1.20); PROTHROMBIN TIME 15.7 SECS (9.5-12.5)
--- NOTE | 2016-08-31 08:00 | NUR ---
OPENING NOTE RECEIVED REPORT AT BEDSIDE THAT PT HAS CONTINUED EPISODES OF HYPOGLYCEMIA, SO MONITORING HIS DIET/INTACT AND GLOOD SUGAR WELL MANAGING HIS PAIN IS TODAY'S FOCUS. PT A&O X 4 AND COOPERATIVE, VS STABLE. IV ACCESS FLUSHES, DRESSING DRY AND INTACT. ROSANA DRAIN FUNCTIONING PROPERLY, NO SIGN OF INFECTION AT INCISION SITE.
[2016-08-31] MEDS: NEOMY SULF/BACITRAC ZN/POLY 14.2 GM OINT..GM. TP SCH ×3 (08:46→21:52)
[2016-08-31] MEDS: GABAPENTIN 300 MG CAPSULE PO SCH ×3 (08:47→21:50)
[2016-08-31] MEDS: BALSAM PERU/CASTOR OIL 60 GM OINT...G. TP SCH (08:47)
[2016-08-31] MEDS: MUPIROCIN 2% TOPICAL OINTMENT 22 GM TP SCH ×2 (08:47→22:07)
[2016-08-31] MEDS: MULTIVITS,CA,MINERALS/IRON/FA 1 TABLET PO SCH (08:48)
[2016-08-31] MEDS: LIPASE/PROTEASE/AMYLASE 1 CAP PO SCH ×3 (08:48→21:51)
[2016-08-31] MEDS: risperiDONE 1 MG TABLET (RisperDAL) PO SCH (08:48)
[2016-08-31] MEDS: FERROUS SULFATE 325 MG TABLET.DR PO SCH ×2 (08:48→21:50)
[2016-08-31] MEDS: SERTRALINE HCL 50 MG TABLET PO SCH ×2 (08:48→21:50)
--- NOTE | 2016-08-31 10:01 | NUR ---
ROUNDS PT IS SITTING UP IN BED, WATCHING TV. HE SAID HE IS COMFORTABLE AND THAT HIS 0930 ADMINISTRATION OF DILAUDID IS MANAGING HIS PAIN
--- NOTE | 2016-08-31 12:00 | NUR ---
ROUNDS PT IS SITTING UP IN BED, WATCHING TV. CONINUING TO MONITOR FOR S/S OF HYPER OR HYPOGLYCEMIA
[2016-08-31] MEDS: INSULIN REGULAR, HUMAN 100 UNITS/ML, 10 ML VIAL (novoLIN R) SUBCUT PRN (13:21)
[2016-08-31] MEDS ORDERED: HYDROmorphone 2 MG/ML VIAL IVP ONE (14:00)
--- NOTE | 2016-08-31 14:25 | NUR ---
rounds/hypoglycemia Pt reported feeling light-headed and I noted his hands trembling, so I checked his blood sugar and it was 43. I administered 50% dextrose per prescribed protocol and will follow-up in 15 minutes
--- NOTE | 2016-08-31 15:55 | NUR ---
PICC NURSE AT BEDSIDE
[2016-08-31] MEDS: DEXTROSE 50% JECT 50 ML DISP.SYRIN IVP PRN (16:30)
--- NOTE | 2016-08-31 18:00 | NUR ---
ROUNDS PT IS IN BED AND APPEARS TO BE SLEEPING. BED ALARM SET AND CALL LIGHT WITHIN REACH
[2016-08-31] MEDS ORDERED: HYDROmorphone 2 MG/ML VIAL ONE (18:12)
--- NOTE | 2016-08-31 19:15 | NUR ---
CLOSING NOTE REPORT GIVEN TO PM NURSE AT BEDSIDE. PT APPEARS COMFORTABLE AND IN GOOD SPIRITS, AND HE SAID HE WAS HAPPY TO HAVE THE SAME PM NURSE THE PREVIOUS NIGHT. PT IS STABLE AND AND HE IS ENCOURAGED TO EAT WHENEVER HE FEEL SHUNGER OF NOTICES S/S OF HYPOGLYCEMIA - THERE IS A TURKEY SANDWICH AT BEDSIDE
--- NOTE | 2016-08-31 19:46 | NUR ---
OPENING NOTE Pt. and bedside report received from day shift nurse. Pt. is AAO x 4 and resting comfortably in bed, using his cell phone. Respirations are even and unlabored with visible chest rise and fall. Right upper arm PICC line in place, dressing appears CDI. Dressings to multiple wounds to bilateral lower extremities are in place, dry and intact with no active bleeding noted; ROSANA drain to right lower extremity secured and maintaining suction. Plan of care discussed; encouraged pt. to continue eating snacks to prevent hypoglycemia. Encouraged pt. to use incentive spirometer for deep breathing exercises but pt. refusing at this time and states he "tries" to and is educated on its use. Pt. verbalized understanding. Safety and fall precautions in place. Will continue to monitor.
[2016-08-31] MEDS: TEMAZEPAM 15 MG CAPSULE PO SCH (21:00)
--- NOTE | 2016-08-31 21:47 | NUR ---
PAIN/ACCUCHECK Pt. c/o "10/13" pain, pt. medicated with Dilaudid 2mg IVP as ordered PRN for severe pain. Due meds administered as ordered. Pt. tolerated well. Refused Restoril. See eMAR. Accucheck done, blood sugar 92. Educated and encouraged pt. to continue eating snacks to prevent hypoglycemia. Pt. verbalized understanding. Safety and fall precautions in place. Call light to right hand. Bed alarm on. Will continue to monitor.
[2016-09-01] MEDS: AMPICILLIN SODIUM/SULBACTAM NA 1.5 GM in NS 50 ML IV SCH ×5 (00:17→23:10)
[2016-09-01 00:24] VITALS: BP_SYST 129
--- NOTE | 2016-09-01 00:55 | NUR ---
EMPTIED URINAL Late entry due to pt. care. Emptied 550mls of urine from urinal.
--- NOTE | 2016-09-01 01:26 | NUR ---
RESTING Pt. is resting quietly in bed with no s/s of acute distress. Safety and fall precautions in place. Call light to right hand. Bed alarm on. Will continue to monitor.
[2016-09-01] MEDS: HYDROmorphone 2 MG/ML VIAL IVP PRN ×6 (01:40→21:41)
--- NOTE | 2016-09-01 01:44 | NUR ---
PAIN/EMPTIED OSMANY DRAIN Pt. c/o "12/14" generalized pain and stated "it just hurts so bad all day it never goes away." Pt. medicated with Dilaudid 2mg IVP as ordered PRN for severe pain. See EMAR. Educated pt. regarding medication and s/e. Emptied 25mls of serosanguineous drainage for osmany drain to right lower extremity. Encouraged pt. to use call light for needs. Call light to right hand. Bed alarm on. Will continue to monitor.
--- NOTE | 2016-09-01 03:50 | NUR ---
RESTING Pt. is resting quietly in bed with eyes closed. Respirations are even and unlabored. No s/s of acute distress. Safety and fall precautions in place. Bed alarm on. Call light to right hand. Will continue to monitor.
[2016-09-01 04:29] VITALS: BP_SYST 143
[2016-09-01] MEDS: metroNIDAZOLE 500 MG TABLET PO SCH ×3 (05:36→21:40)
[2016-09-01] MEDS: INSULIN REGULAR, HUMAN 100 UNITS/ML, 10 ML VIAL (novoLIN R) SUBCUT PRN ×2 (06:31→11:53)
[2016-09-01 06:38] LABS: CALCIUM 8.1 mg/dL (8.4-11.0); CREATININE 0.83 mg/dL (0.55-1.30); POTASSIUM 4.1 mmol/L (3.5-5.1)
--- NOTE | 2016-09-01 06:51 | NUR ---
CHG BATH/ACCUCHECK/DUE MEDS/PAIN/CLOSING NOTES Late entry due to pt. care. Pt. c/o severe pain and was medicated with Dilaudid 2mg IVP as ordered PRN for severe pain. See eMAR. Due meds and IV antibiotic administered as ordered. Accucheck done, blood sugar 343; 8 units of regular insulin was given per sliding scale order. No s/s of acute distress. Safety and fall precautions in place. Encouraged pt. to use call light for needs. Will endorse care to oncoming day shift nurse.
[2016-09-01 06:57] LABS: BASOPHILS # (AUTO) 0.1 K/uL (0.0-0.2); BASOPHILS % (AUTO) 0.4 % (0.0-2.0); EOSINOPHILS % (AUTO) 0.2 % (0.0-4.0); HEMATOCRIT 34.5 % (36-54); HEMOGLOBIN 11.2 g/dL (14.0-18.0); LYMPHOCYTES # (AUTO) 1.6 K/uL (1.0-5.5); LYMPHOCYTES % (AUTO) 7.4 % (20.5-51.5); MEAN CORPUSCULAR HEMOGLOBIN 28 pg (27-31); MEAN CORPUSCULAR HGB CONC 32 % (32-36); MEAN CORPUSCULAR VOLUME 85 fL (79.0-98.0); MONOCYTES # (AUTO) 0.7 K/uL (0.0-1.0); MONOCYTES % (AUTO) 3.2 % (1.7-9.3); NEUTROPHILS # (AUTO) 19.8 K/uL (1.8-7.7); PLATELET COUNT (AUTO) 357 K/uL (130-430); RED BLOOD CELL COUNT(AUTO) 4.07 MIL/uL (4.2-6.2); WHITE BLOOD COUNT (AUTO) 22.2 K/uL (4.8-10.8)
--- NOTE | 2016-09-01 06:59 | NUR ---
PT. REQUESTED CONTINUOUS WELD PIPE MILL SUPERVISOR MAREN Pt. expressed concerns about going back to SNF and requested psych social worker to see him because "[facility] cannot manage my pain." Made ROZINA Hernandez aware.
--- NOTE | 2016-09-01 08:05 | NUR ---
0800/OPENING NOTE RECEIVED REPORT FROM LINSEED OIL BOILER NURSE. PATIENT IS RESTING COMFORTABLY, PAIN AT A TOLERABLE LEVEL CURRENTLY, WOULD LIKE PAIN MEDICATION WHEN AVAILABLE. PATIENT HAS NO NOTABLE SIGNS OF DISTRESS. PATIENT IS AAOX4. PATIENTS BED IN LOWEST POSITION, CALL LIGHT WITHIN REACH, AND SIDE RAILS ARE UP FOR SAFETY. PATIENT HAS INCONTINENCE BRIEFS, EDUCATED ON SKIN RISK, PATIENT VERBALIZED UNDERSTANDING. PATIENT ENCOURAGED TO USE CALL LIGHT WHEN NEEDING OUT OF BED. WILL CONTINUE TO MONITOR PATIENT FOR CHANGES IN STATUS.
[2016-09-01 08:10] VITALS: BP_SYST 131
[2016-09-01] MEDS: NEOMY SULF/BACITRAC ZN/POLY 14.2 GM OINT..GM. TP SCH ×2 (09:00→21:39)
[2016-09-01] MEDS: BALSAM PERU/CASTOR OIL 60 GM OINT...G. TP SCH (09:00)
[2016-09-01] MEDS: GABAPENTIN 300 MG CAPSULE PO SCH ×3 (09:45→21:40)
[2016-09-01] MEDS: SERTRALINE HCL 50 MG TABLET PO SCH ×2 (09:45→21:40)
[2016-09-01] MEDS: MUPIROCIN 2% TOPICAL OINTMENT 22 GM TP SCH ×2 (09:45→21:39)
[2016-09-01] MEDS: LIPASE/PROTEASE/AMYLASE 1 CAP PO SCH ×3 (09:45→21:40)
[2016-09-01] MEDS: risperiDONE 1 MG TABLET (RisperDAL) PO SCH (09:46)
[2016-09-01] MEDS: FERROUS SULFATE 325 MG TABLET.DR PO SCH ×2 (09:46→21:40)
[2016-09-01] MEDS: MULTIVITS,CA,MINERALS/IRON/FA 1 TABLET PO SCH (09:46)
[2016-09-01 10:08] LABS: NEUTROPHILS % (AUTO) 88.8 % (40.0-70.0)
--- NOTE | 2016-09-01 10:15 | NUR ---
1000 NOTE PATIENT IS RESTING COMFORTABLY, FAMILY AT BEDSIDE. RECEIVED PAIN MEDICATION, PAIN AT A TOLERABLE LEVEL CURRENTLY. PATIENT HAS NO NOTABLE SIGNS OF DISTRESS. PATIENT IS AAOX4. PATIENTS BED IN LOWEST POSITION, CALL LIGHT WITHIN REACH, AND SIDE RAILS ARE UP FOR SAFETY. PATIENT ENCOURAGED TO USE CALL LIGHT WHEN NEEDING OUT OF BED. WILL CONTINUE TO MONITOR PATIENT FOR CHANGES IN STATUS.
[2016-09-01 11:23] VITALS: BP_SYST 134
[2016-09-01] MEDS: ONDANSETRON HCL 4 MG/2 ML VIAL IVP PRN (12:12)
--- NOTE | 2016-09-01 12:26 | NUR ---
1200 NOTE PATIENT IS RESTING COMFORTABLY, FAMILY AT BEDSIDE VISITING. WOULD LIKE PAIN MEDICATION WHEN AVAILABLE. PATIENT HAS NO NOTABLE SIGNS OF DISTRESS. PATIENTS BED IN LOWEST POSITION, CALL LIGHT WITHIN REACH, AND SIDE RAILS ARE UP FOR SAFETY. PATIENT ENCOURAGED TO USE CALL LIGHT WHEN NEEDING OUT OF BED. WILL CONTINUE TO MONITOR PATIENT FOR CHANGES IN STATUS.
--- NOTE | 2016-09-01 14:56 | NUR ---
1400 NOTE PATIENT IS RESTING COMFORTABLY, FAMILY AT BEDSIDE VISITING. PATIENT GIVEN PAIN MEDICATION AND IT HAS BROUGHT THE PATIENTS PAIN LEVEL TO TOLERABLE LEVEL. PATIENT HAS NO NOTABLE SIGNS OF DISTRESS. PATIENTS ROSANA DRAIN EMPTIED, 50ML FLUID. PATIENTS BED IN LOWEST POSITION, CALL LIGHT WITHIN REACH, AND SIDE RAILS ARE UP FOR SAFETY. PATIENT ENCOURAGED TO USE CALL LIGHT WHEN NEEDING OUT OF BED. WILL CONTINUE TO MONITOR PATIENT FOR CHANGES IN STATUS.
--- NOTE | 2016-09-01 15:31 | NUR ---
NOTE PATIENT WAS HAVING VISUAL CHANGES, ASKED TO HAVE HIS BLOOD SUGAR CHECKED. 68MG/DL. PATIENT PROVIDED WITH TURKEY SANDWICH AND ORANGE JUICE. WILL FOLLOW UP.
[2016-09-01 16:06] VITALS: BP_SYST 122
--- NOTE | 2016-09-01 16:18 | NUR ---
1600 NOTE PATIENT RESTING COMFORTABLY, NO COMPLAINTS OF PAIN AT THIS TIME. NO NOTABLE SIGNS OF DISTRESS AT THIS TIME. PATIENTS BED IN LOWEST POSITION, CALL LIGHT WITHIN REACH, AND SIDE RAILS ARE UP FOR SAFETY. PATIENT HAS GOOD APPETITE AND IS TOLERATING PO INTAKE. WILL CONTINUE TO MONITOR PATIENT FOR CHANGES IN STATUS.
--- NOTE | 2016-09-01 17:46 | NUR ---
NOTE PATIENT FINGERSTICK LEVEL WAS 172. PATIENT DOES NOT WANT COVERAGE AT THIS TIME, BECAUSE OF HYPOGLYCEMIC EPISODE EARLIER. WILL CONTINUE TO MONITOR PATIENT.
--- NOTE | 2016-09-01 18:53 | NUR ---
1800 NOTE WAITING TO GIVE SHIFT REPORT TO PLANT CONTROL AIDE NURSE. PATIENT RESTING COMFORTABLY, NO COMPLAINTS OF PAIN AT THIS TIME. PATIENT RECEIVED PAIN MEDICATION, PAIN TOLERABLE UPON REASSESSMENT. NO NOTABLE SIGNS OF DISTRESS AT THIS TIME. PATIENTS BED IN LOWEST POSITION, CALL LIGHT WITHIN REACH, AND SIDE RAILS ARE UP FOR SAFETY. WILL CONTINUE TO MONITOR PATIENT FOR CHANGES IN STATUS.
[2016-09-01 20:00] VITALS: BP_SYST 129
--- NOTE | 2016-09-01 20:00 | NUR ---
Initial Notes Received patient resting in bed, awake, alert, oriented. Patient denies any acute distress or pain at this time. Vital signs stable. Breathing is even and unlabored. PICC line noted right right upper arm, patent/clean/dry. Dressings noted to right lower extremity, ROSANA drain present, serosanguineous drainage noted draining to compression. Educated patient on use of call light for assistance and fall precautions, patient verbalized understanding. Patient requesting to go outside to smoke, SENIOR ENERGY TRADER notified to assist patient. Will continue to monitor.
--- NOTE | 2016-09-01 20:45 | NUR ---
Returned from Smoking Outside with DETECTOR CAR OPERATOR Assistance Patient back in bed, NAD noted/reported. Call light in hand, will continue to monitor.
--- NOTE | 2016-09-01 22:00 | NUR ---
Rounds Patient resting in bed, awake. Denies any acute distress. Medicated patient for pain per MD order. Needs addressed. Call light in hand, will continue to monitor.
--- NOTE | 2016-09-02 | NUR ---
Rounds Patient resting in bed with eyes closed, easily aroused. Patient denies any acute distress or pain at this time. Breathing is even and unlabored. ROSANA draining to compression. Needs addressed. Call light in hand, will continue to monitor.
[2016-09-02 00:07] VITALS: BP_SYST 128
--- NOTE | 2016-09-02 00:40 | NUR ---
Rounds Patient resting in bed, awake. Patient denies any acute distress at this time. Breathing is even and unlabored. Medicated patient for pain per MD orders. Knee immobilizer in place, patient tolerating well. Needs addressed. Call light in hand, will continue to monitor. Addendum: 09/02/16 at 0051 by Klever Marlow RN Charting for wrong patient. Please disregard.
[2016-09-02] MEDS: HYDROmorphone 2 MG/ML VIAL IVP PRN ×6 (02:15→21:37)
--- NOTE | 2016-09-02 02:15 | NUR ---
MRI Questionnaire Completed and Dressing Change MRI Questionnaire completed and charted. Wound care and dressing change performed, patient tolerated well. Wounds covered in gauze, wrapped with Kerlix bandage. ROSANA draining to compression. Call light in hand, will continue to monitor.
[2016-09-02 04:07] VITALS: BP_SYST 118
--- NOTE | 2016-09-02 04:11 | NUR ---
Rounds Patient resting in bed with eyes closed. No acute distress noted, breathing is even and unlabored. ROSANA draining to compression. Call light in hand, will continue to monitor.
[2016-09-02] MEDS: metroNIDAZOLE 500 MG TABLET PO SCH ×3 (05:20→21:24)
[2016-09-02] MEDS: AMPICILLIN SODIUM/SULBACTAM NA 1.5 GM in NS 50 ML IV SCH ×4 (05:20→23:17)
[2016-09-02 06:15] LABS: CALCIUM 8.2 mg/dL (8.4-11.0); CHLORIDE 104 mmol/L (98-107); CREATININE 0.71 mg/dL (0.55-1.30); GLUCOSE 144 mg/dL (70-99); POTASSIUM 4.2 mmol/L (3.5-5.1); SODIUM SERUM 140 mmol/L (136-145); UREA NITROGEN, BLOOD 12 mg/dL (8-21)
[2016-09-02 06:17] LABS: HEMATOCRIT 34.3 % (36-54); HEMOGLOBIN 11.3 g/dL (14.0-18.0); MEAN CORPUSCULAR HEMOGLOBIN 28 pg (27-31); MEAN CORPUSCULAR HGB CONC 33 % (32-36); MEAN CORPUSCULAR VOLUME 86 fL (79.0-98.0); PLATELET COUNT (AUTO) 348 K/uL (130-430); RED BLOOD CELL COUNT(AUTO) 4.01 MIL/uL (4.2-6.2); WHITE BLOOD COUNT (AUTO) 22.5 K/uL (4.8-10.8)
[2016-09-02 06:25] LABS: ANION GAP < 3 (5-15); GFR AFRICAN AMERICAN 156 mL/min (>90)
--- NOTE | 2016-09-02 06:43 | NUR ---
Closing Notes Patient resting in bed, awake. Patient denies any acute distress at this time. Breathing is even and unlabored on room air. PICC line patent/clean/dry, no S/S infection/infiltration noted. ROSANA draining to compression, total output for shift 70ml serosanguineous. Dressings clean/dry/intact. Medicated patient for pain per MD orders. Morning fingerstick blood sugar 156, patient refusing sliding scale coverage. Needs addressed throughout shift. Call light in hand, fall precautions in place. Will continue to monitor for changes and safety, and endorse all patient care/needs to oncoming nurse.
--- NOTE | 2016-09-02 07:30 | NUR ---
initial notes: pt on bed resting. stable. picc line access intact. discussed plan of care. call light within reach.
[2016-09-02 08:18] LABS: ATYPICAL LYMPHOCYTES % 0 % (0-0); BAND % (MANUAL) 4 % (0-6); BASOPHILS % (MANUAL) 0 % (0-2); EOSINOPHILS % (MANUAL) 0 % (0-7); LYMPHOCYTES % (MANUAL) 9 % (20-46); MONOCYTES % (MANUAL) 5 % (0-11)
[2016-09-02] MEDS: FERROUS SULFATE 325 MG TABLET.DR PO SCH ×2 (09:47→21:24)
[2016-09-02] MEDS: risperiDONE 1 MG TABLET (RisperDAL) PO SCH (09:48)
[2016-09-02] MEDS: SERTRALINE HCL 50 MG TABLET PO SCH ×2 (09:48→21:25)
[2016-09-02] MEDS: LIPASE/PROTEASE/AMYLASE 1 CAP PO SCH ×3 (09:49→21:24)
[2016-09-02] MEDS: MULTIVITS,CA,MINERALS/IRON/FA 1 TABLET PO SCH (09:49)
[2016-09-02] MEDS: GABAPENTIN 300 MG CAPSULE PO SCH ×3 (09:49→21:24)
[2016-09-02] MEDS: MUPIROCIN 2% TOPICAL OINTMENT 22 GM TP SCH ×2 (09:51→21:24)
[2016-09-02] MEDS: BALSAM PERU/CASTOR OIL 60 GM OINT...G. TP SCH (09:51)
[2016-09-02] MEDS: NEOMY SULF/BACITRAC ZN/POLY 14.2 GM OINT..GM. TP SCH ×2 (09:51→21:24)
--- NOTE | 2016-09-02 10:30 | NUR ---
rounds: pt on bed talking on the phone. no distress noted.
--- NOTE | 2016-09-02 10:54 | NUR ---
MRI: went to radiology room for mri via W/C.
[2016-09-02] MEDS: INSULIN REGULAR, HUMAN 100 UNITS/ML, 10 ML VIAL (novoLIN R) SUBCUT PRN ×3 (12:24→21:27)
--- NOTE | 2016-09-02 12:26 | NUR ---
rounds: pt having lunch.
--- NOTE | 2016-09-02 14:39 | NUR ---
DC PLANNING Spoke w pt states that he changed his mind & wants to go to LTAC not back to snf. States he has too much care for SNF so now agreeable w LTAC. States that preference is [facility], but if Dr Escalante does not go there will be agreeable to one which could follow.
--- NOTE | 2016-09-02 15:37 | NUR ---
rounds: pt on bed talking to staff. no distress noted.
[2016-09-02 16:20] VITALS: BP_SYST 117
[2016-09-02 16:37] VITALS: BP_SYST 117
--- NOTE | 2016-09-02 16:56 | NUR ---
DISCHARGE PLANNING DC Planning order for LTAC evaluation. Faxed DC Planning order to [place] [phone]. Notified [facility] Liaison Destini confirmed Dr Escalante follows patients at [facility] only. DCP will follow up.
--- NOTE | 2016-09-02 17:49 | NUR ---
rounds: pt on bed having dinner. no distress noted.
--- NOTE | 2016-09-02 18:51 | NUR ---
closing notes: pt on bed having dinner. stable. needs attended. call light within reach. report will be given to incoming nurse.
[2016-09-02 20:00] VITALS: BP_SYST 121
--- NOTE | 2016-09-02 20:00 | NUR ---
Initial Notes Received patient resting in bed with eyes closed, easily aroused, alert, oriented. Patient denies any acute distress or pain at this time. Vital signs stable. Breathing is even and unlabored on room air. PICC site patent/clean/dry. Wounds noted to right foot and lower leg, dressings clean/dry/intact. ROSANA draining serosanguineous output to compression. Educated patient on use of call light for assistance and fall precautions, patient verbalized understanding. Call light in hand, will continue to monitor.
--- NOTE | 2016-09-02 22:00 | NUR ---
Rounds Patient resting in bed, awake. Patient denies any acute distress. Breathing is even and unlabored. IV site patent/clean/dry. Medicated patient for pain per MD orders. Patient refusing ordered sliding scale, educated patient on importance, patient continues to refuse. Needs addressed. Call light in hand, will continue to monitor.
--- NOTE | 2016-09-03 | NUR ---
Rounds Patient resting in bed with eyes closed, easily aroused. Patient denies any acute distress/pain/needs at this time. Breathing is even and unlabored. Call light in hand, will continue to monitor.
[2016-09-03 00:02] VITALS: BP_SYST 123
--- NOTE | 2016-09-03 02:00 | NUR ---
Rounds Patient resting in bed, awake. Patient denies any acute distress. Patient c/o pain to right leg, will medicate patient per MD orders. IV site patent/clean/dry. ROSANA draining to compression. Needs addressed. Call light in hand, will continue to monitor.
[2016-09-03] MEDS: HYDROmorphone 2 MG/ML VIAL IVP PRN ×5 (02:23→18:17)
--- NOTE | 2016-09-03 04:00 | NUR ---
Rounds Patient resting in bed, awake. Patient denies any acute distress or pain at this time. Breathing is even and unlabored. Wound care and dressing change provided, patient tolerated well. Needs addressed, will continue to monitor.
[2016-09-03 04:04] VITALS: BP_SYST 117
[2016-09-03] MEDS: AMPICILLIN SODIUM/SULBACTAM NA 1.5 GM in NS 50 ML IV SCH ×3 (05:01→17:22)
[2016-09-03 06:06] LABS: CALCIUM 8.1 mg/dL (8.4-11.0); CHLORIDE 104 mmol/L (98-107); CREATININE 0.72 mg/dL (0.55-1.30); GLUCOSE 153 mg/dL (70-99); POTASSIUM 4.1 mmol/L (3.5-5.1); SODIUM SERUM 137 mmol/L (136-145); UREA NITROGEN, BLOOD 13 mg/dL (8-21)
[2016-09-03 06:09] LABS: BASOPHILS % (AUTO) 0.2 % (0.0-2.0); EOSINOPHILS # (AUTO) 0.1 K/uL (0.0-0.4); EOSINOPHILS % (AUTO) 0.4 % (0.0-4.0); HEMATOCRIT 34.4 % (36-54); HEMOGLOBIN 10.8 g/dL (14.0-18.0); LYMPHOCYTES # (AUTO) 1.7 K/uL (1.0-5.5); LYMPHOCYTES % (AUTO) 6.9 % (20.5-51.5); MEAN CORPUSCULAR HEMOGLOBIN 27 pg (27-31); MEAN CORPUSCULAR HGB CONC 32 % (32-36); MEAN CORPUSCULAR VOLUME 85 fL (79.0-98.0); MONOCYTES # (AUTO) 0.4 K/uL (0.0-1.0); MONOCYTES % (AUTO) 1.8 % (1.7-9.3); NEUTROPHILS # (AUTO) 21.8 K/uL (1.8-7.7); NEUTROPHILS % (AUTO) 90.7 % (40.0-70.0); PLATELET COUNT (AUTO) 350 K/uL (130-430); RED BLOOD CELL COUNT(AUTO) 4.03 MIL/uL (4.2-6.2); RED CELL DISTRIBUTION WIDTH 14.7 % (9.0-15.0)
[2016-09-03 06:10] LABS: ANION GAP < 3 (5-15); GFR AFRICAN AMERICAN 153 mL/min (>90)
[2016-09-03] MEDS: metroNIDAZOLE 500 MG TABLET PO SCH (06:12)
[2016-09-03] MEDS: INSULIN REGULAR, HUMAN 100 UNITS/ML, 10 ML VIAL (novoLIN R) SUBCUT PRN ×2 (06:16→12:24)
--- NOTE | 2016-09-03 06:42 | NUR ---
Closing Notes Patient resting in bed with eyes closed, easily aroused. Patient denies any acute distress or pain at this time. Breathing is even and unlabored on room air. PICC site patent/clean/dry, no S/S infection/infiltration noted. Dressings clean/dry/intact. ROSANA draining to compression. Needs addressed throughout shift. Call light in hand, fall precautions in place. Will continue to monitor for changes and safety, and endorse all patient care/needs to oncoming nurse.
--- NOTE | 2016-09-03 07:20 | NUR ---
Initial notes: pt on bed awake, alert and oriented. i.v. access patent. discussed plan of care. call light within reach.
--- NOTE | 2016-09-03 10:00 | NUR ---
rounds: pt on bed resting. no distress noted.
[2016-09-03] MEDS: LIPASE/PROTEASE/AMYLASE 1 CAP PO SCH ×2 (10:22→14:24)
[2016-09-03] MEDS: FERROUS SULFATE 325 MG TABLET.DR PO SCH (10:22)
[2016-09-03] MEDS: GABAPENTIN 300 MG CAPSULE PO SCH ×2 (10:22→14:14)
[2016-09-03] MEDS: SERTRALINE HCL 50 MG TABLET PO SCH (10:22)
[2016-09-03] MEDS: MULTIVITS,CA,MINERALS/IRON/FA 1 TABLET PO SCH (10:22)
[2016-09-03] MEDS: risperiDONE 1 MG TABLET (RisperDAL) PO SCH (10:22)
--- NOTE | 2016-09-03 10:23 | NUR ---
DISCHARGE PLANNING Spoke with [facility] [phone] who will come and evaluate patient today. DCP will follow up. Addendum: 09/03/16 at 1548 by Juana Pittman DP spoke with [facility] patient accepted. Bed assignment will be given upon discharge order. CM made aware. Meanwhile; Ordered radiology Cd. Placed transportation packet in nurses station. Pending discharge order for bed assignment.
[2016-09-03] MEDS: NEOMY SULF/BACITRAC ZN/POLY 14.2 GM OINT..GM. TP SCH (10:28)
[2016-09-03] MEDS: MUPIROCIN 2% TOPICAL OINTMENT 22 GM TP SCH (10:28)
[2016-09-03] MEDS: BALSAM PERU/CASTOR OIL 60 GM OINT...G. TP SCH (10:29)
[2016-09-03 11:34] VITALS: BP_SYST 133
--- NOTE | 2016-09-03 12:27 | NUR ---
rounds: pt having lunch. stable.
[2016-09-03] MEDS: ONDANSETRON HCL 4 MG/2 ML VIAL IVP PRN (13:14)
--- NOTE | 2016-09-03 13:18 | NUR ---
Vomiting: pt vomit with undigested food. Ondansetron i.v.p. given.
[2016-09-03] MEDS ORDERED: metroNIDAZOLE 500 mg/NS 100 ML IV SCH (14:00)
--- NOTE | 2016-09-03 15:10 | NUR ---
WOUND RE-EVALUATION: Patient received in a [place] Bed with an Isoflex JUNIOR mattress with low air loss therapy initiated, awake, alert, and oriented. Patient is unable to turn independently. Chucky Score is a 14. Microbiology: Blood culture 2 negative. Intrinsic factors that delay wound healing: Extrinsic factors that delay wound healing: Decreased mobility. Wound care performed by supervisor gelatin plant nurse this morning. Dressings not removed for assessment, because doing so would decrease wound temperature and retard wound healing rate. Wound Assessment: 1) Right Plantar Heel: Diabetic Ulcer, present on admission. Recommend continue: Cleanse wound with normal saline. Place sure prep onto sharifa-wound. Venelex ointment onto the wound bed. Pack wound with 1/4 inch iodoform. Cover with foam dressing. Wrap with Soco wrap. Perform wound care daily, and as needed for dressing soiling or dislodgement. 2) Right Proximal Anterior Lateral Caldera: Open bulla with small yellow drainage. Recommend continue as ordered by Dr. Escalante: Cleanse wound with Hydrogen Peroxide. Put sure prep on periwound. Put antibiotic ointment onto site. Cover with foam dressing, and wrap with Soco wrap. Secure with tape. Cover with warm NSS Compress. Perform wound care BID, and as needed for dressing soiling or dislodgement. 3) Right plantar foot, inferior to metatarsal heads: Appears to be a large closed bulla, extending from medial foot to plantar foot. Recommend continue: No dressing needed. Continue to monitor site every shift. Consult wound care nurse is area opens or worsens. 4) Right Foot, Superior and Posterior to Lateral Malleolus: Appears to be a chronic wound, present on admission. Recommend continue: No dressing needed. Continue to monitor site every shift. Consult wound care nurse if area worsens. Also recommend continue: Reposition patient [id number] only every 2 hours with pillow support and off-load pressure areas with pillows for pressure re-distribution. Offload, elevate and float bilateral heels with pillows. Perform skin care and monitor skin integrity Q shift. Use moisture barrier cream on buttocks and other moisture susceptible areas QID and as needed for soiling. Maintain patient on a low air-loss mattress. Dr. Escalante on the case for surgical consult, and said he was holding off on performing an amputation secondary to right lateral lower extremity drainage. ROSANA Drain is in place.
[2016-09-03 17:17] VITALS: BP_SYST 130
[2016-09-03 18:53] VITALS: BP_SYST 139
--- NOTE | 2016-09-03 19:30 | NUR ---
closing notes: pt went outside with DANCE STUDIO MANAGER. stable. needs attended. report given to shift manager nurse.
--- NOTE | 2016-09-03 19:37 | NUR ---
report to [facility]: report given to Sandra of [facility] for the transfer of pt.
--- NOTE | 2016-09-03 19:58 | NUR ---
PM ASSESSMENT PT. A/OX4, VITAL SIGNS STABLE, NO DISTRESS NOTED, DENIES PAIN, NOTED WITH PRINCESS PICC LINE SALINE LOCKED, FLUSHED WELL WITH 10 CC NS THROUGH EACH PORT, NOTED WITH DRESSING TO RIGHT LOWER EXTREMITY CLEAN, DRY, INTACT. UPDATED WITH PLAN OF CARE, CALL LIGHT WITHIN REACH, BED IN LOWEST POSITION.
--- NOTE | 2016-09-03 20:06 | NUR ---
AMBULANCE ARRANGMENT ARRANGED CALLED [facility] AT SPOKE WITH [facility], ETA OF [place] MACHINE OPERATOR WILL BE AT 0988 TO KELSY YO.
--- NOTE | 2016-09-03 21:30 | NUR ---
D/C Patient Patient given medication reconciliation form and D/C instructions. Exit Care provided. Patient verbalized understanding. MD discussed with patient the results and treatment provided. Patient in stable condition, ID band removed. Patient educated on pain management. All belongings sent with patient. PICC line in place to right upper arm. Dressing in place to right lower leg. Transferred safely to [facility].
== END 2016-09-03 21:30 | DRG 987 ==
LOC: SED 19:40 → SMU 22:38
PROVIDERS: ADMIT Family Medicine; ATTEND Family Medicine
PROC: 30233N1 Transfusion of Nonautologous Red Blood Cells into Peripheral Vein, Percutaneous Approach (ICD-10-PCS; 2016-08-23)
PROC: 30233N1 Transfusion of Nonautologous Red Blood Cells into Peripheral Vein, Percutaneous Approach (ICD-10-PCS; 2016-08-24)
PROC: 30233N1 Transfusion of Nonautologous Red Blood Cells into Peripheral Vein, Percutaneous Approach (ICD-10-PCS; 2016-08-29)
PROC: 0J9N0ZZ Drainage of Right Lower Leg Subcutaneous Tissue and Fascia, Open Approach (ICD-10-PCS; principal; 2016-08-29 16:45)
PROC: 02HV33Z Insertion of Infusion Device into Superior Vena Cava, Percutaneous Approach (ICD-10-PCS; 2016-08-31)
PROC: B548ZZA Ultrasonography of Superior Vena Cava, Guidance (ICD-10-PCS; 2016-08-31)
DX: E10.51 Type 1 diabetes mellitus with diabetic peripheral angiopathy without gangrene (principal); E43 Unspecified severe protein-calorie malnutrition; M86.8X7 Other osteomyelitis, ankle and foot; L03.115 Cellulitis of right lower limb; E87.1 Hypo-osmolality and hyponatremia; Z68.1 Body mass index [BMI] 19.9 or less, adult; L97.419 Non-pressure chronic ulcer of right heel and midfoot with unspecified severity; D64.9 Anemia, unspecified; E10.610 Type 1 diabetes mellitus with diabetic neuropathic arthropathy; E10.65 Type 1 diabetes mellitus with hyperglycemia; E10.69 Type 1 diabetes mellitus with other specified complication; G89.4 Chronic pain syndrome; E10.621 Type 1 diabetes mellitus with foot ulcer; Z79.4 Long term (current) use of insulin; Z79.899 Other long term (current) drug therapy; Z22.322 Carrier or suspected carrier of Methicillin resistant Staphylococcus aureus
CPT/HCPCS: 36415; 71010; 73721; 78315; 80048; 80053; 81000-TC; 82607; 82728; 82746; 82962; 83036; 83540-TC; 83550-TC; 83605; 83735-TC; 84100-TC; 85007; 85025; 85027; 85610-TC; 85730-TC; 86886; 86900; 86901; 86920; 87040-TC; 87070; 87070-TC; 87075-TC; 87081; 87186-TC; 93005; 94010; 96365; 96366; 96367; 96375; 99285; A9503; C1751; J0295; J0712; J1170; J1450; J1610; J1650; J1815; J2250; J2405; J2543; J2704; J2916; J3010; J3370; J3490; J7030; J7040; J7050; J7060; P9021

== ENCOUNTER 2017-02-17 11:04 | Inpatient (IN) | payer OTHER, MEDICAID ==
[~2017-02-17] VITALS: Ht 185.4 cm; Wt 57.6 kg
[~2017-02-17 11:04] MED LIST: ACET-2165 PO; AMYL1CAP54 PO; FERR-57 PO; GLUC1VIA4 IM; GLUCOSE GEL PO; HYDR-4100 PO; INSU100V11 SQ; INSU100V8 SUBCUT; MAGN400O4 PO; MULT-300 PO; NEU300 PO; RISP3TAB5 PO; SERT-131 PO; [UNRECOGNIZED DRUG - CODE] IV
[2017-02-17 11:14] VITALS: BP_SYST 110
[2017-02-17] MEDS ORDERED: MORPHINE 2 MG/ML INJ. SYRINGE IVP ONE (11:45)
[2017-02-17] MEDS ORDERED: NACL 0.9% 1,000 ML IV ONE (11:45)
[2017-02-17] MEDS ORDERED: DIPHENHYDRAMINE INJ 50 MG/ML VIAL IVP ONE (11:45)
[2017-02-17 12:09] LABS: BASOPHILS % (AUTO) 0.5 % (0.0-2.0); EOSINOPHILS # (AUTO) 0.1 K/uL (0.0-0.4); EOSINOPHILS % (AUTO) 0.8 % (0.0-4.0); HEMATOCRIT 33.9 % (36-54); HEMOGLOBIN 11.5 g/dL (14.0-18.0); LYMPHOCYTES # (AUTO) 2.6 K/uL (1.0-5.5); LYMPHOCYTES % (AUTO) 29.6 % (20.5-51.5); MEAN CORPUSCULAR HEMOGLOBIN 31 pg (27-31); MEAN CORPUSCULAR HGB CONC 34 % (32-36); MEAN CORPUSCULAR VOLUME 90 fL (79.0-98.0); MONOCYTES # (AUTO) 0.4 K/uL (0.0-1.0); MONOCYTES % (AUTO) 4.5 % (1.7-9.3); NEUTROPHILS # (AUTO) 5.7 K/uL (1.8-7.7); NEUTROPHILS % (AUTO) 64.6 % (40.0-70.0); PLATELET COUNT (AUTO) 229 K/uL (130-430); RED BLOOD CELL COUNT(AUTO) 3.75 MIL/uL (4.2-6.2); RED CELL DISTRIBUTION WIDTH 12.6 % (9.0-15.0); WHITE BLOOD COUNT (AUTO) 8.8 K/uL (4.8-10.8)
[2017-02-17 12:16] LABS: PROTHROMBIN TIME 10.4 SECS (9.5-12.5)
[2017-02-17 12:22] LABS: ANION GAP 7 (5-15); CALCIUM 8.8 mg/dL (8.4-11.0); CHLORIDE 104 mmol/L (98-107); CREATININE 0.96 mg/dL (0.55-1.30); GLUCOSE 282 mg/dL (70-99); POTASSIUM 4.3 mmol/L (3.5-5.1); SODIUM SERUM 141 mmol/L (136-145); UREA NITROGEN, BLOOD 26 mg/dL (8-21)
[2017-02-17 12:31] LABS: GFR AFRICAN AMERICAN 109 mL/min (>90)
[2017-02-17 12:38] LABS: ALANINE AMINOTRANSFERASE 134 U/L (12-78); ALBUMIN 3.3 g/dL (3.4-4.8); ASPARTATE AMINOTRANSFERASE 77 U/L (10-37); FREE T4 (FREE THYROXINE) 0.7 ng/dL (0.6-1.6); TOTAL BILIRUBIN 0.3 mg/dL (0.0-1.0)
[2017-02-17 12:41] LABS: ALCOHOL, BLOOD < 3 mg/dL (<10)
[2017-02-17] MEDS ORDERED: MAGNESIUM CITRATE 300 ML ORAL SOLUTION PO ONE (13:00)
[2017-02-17 13:19] LABS: BILIRUBIN,URINE NEGATIVE (NEGATIVE); BLOOD, URINE 3+ (NEGATIVE); CLARITY/URINE CLEAR (CLEAR); COLOR,URINE YELLOW (YELLOW); GLUCOSE,URINE 2+ (NEGATIVE); KETONES,URINE TRACE (NEGATIVE); LEUKOCYTE ESTERASE ,URINE NEGATIVE (NEGATIVE); NITRITE, URINE NEGATIVE (NEGATIVE); PH,URINE 5.5 (5.0-8.0); PROTEIN URINE 3+ (NEGATIVE); UROBILINOGEN,URINE 0.2 (0.2-1.0)
[2017-02-17 13:34] LABS: CANNABINOID, URINE POSITIVE (NEG <=50)
[2017-02-17 13:35] LABS: BARBITURATE, URINE NEGATIVE (NEG <=200); BENZODIAZEPINE, URINE NEGATIVE (NEG <=150); COCAINE, URINE NEGATIVE (NEG <=150); METHAMPHETAMINES SCREEN,URINE NEGATIVE (NEG <=500); OPIATE, URINE POSITIVE (NEG <=100); PHENCYCLIDINE SCREEN,URINE NEGATIVE (NEG <=25); UR TRICYCLIC ANTIDEPRESSANTS NEGATIVE (NEG <=300); URINE AMPHETAMINE NEGATIVE (NEG <=500); URINE METHADONE NEGATIVE (NEG <=200); URINE OXYCODONE SCREEN NEGATIVE (NEG <=100); URINE PROPOXYPHENE SCREEN NEGATIVE (NEG <=300)
[2017-02-17 13:46] LABS: BACTERIA,URINE FEW /HPF (None Seen); HYALINE CASTS, URINE 0-10 /LPF (None Seen); MUCUS,URINE 1+ /LPF (None Seen); WBC,URINE 0-3 /HPF (0-3)
[2017-02-17] MEDS ORDERED: DEXTROSE 50% JECT 50 ML DISP.SYRIN IVP PRN (15:00)
[2017-02-17] MEDS ORDERED: MAGNESIUM SULFATE 50 ML IV PRN (15:00)
[2017-02-17] MEDS ORDERED: ZOLPIDEM TARTRATE 5 MG TABLET PO PRN (15:00)
[2017-02-17] MEDS ORDERED: POTASSIUM CHLORIDE 20 MEQ TAB.PRT.SR PO PRN (15:00)
[2017-02-17] MEDS ORDERED: LORazepam 2 MG/ML VIAL IVP PRN (15:00)
[2017-02-17] MEDS ORDERED: D10W IV PRN (15:00)
[2017-02-17] MEDS ORDERED: ACETAMINOPHEN 325 MG TABLET PO PRN ×2 (15:00)
[2017-02-17] MEDS ORDERED: DOCUSATE SODIUM 100 MG CAPSULE PO PRN (15:00)
[2017-02-17] MEDS ORDERED: ONDANSETRON HCL 4 MG/2 ML VIAL IVP PRN (15:00)
[2017-02-17] MEDS ORDERED: MAGNESIUM CITRATE 300 ML ORAL SOLUTION ONE (15:12)
[2017-02-17 15:37] VITALS: BP_SYST 130
[2017-02-17 16:17] LABS: AMYLASE 21 U/L (0-100); LIPASE 44 U/L (73-393)
[2017-02-17] MEDS: GABAPENTIN 300 MG CAPSULE PO SCH ×2 (16:49→22:41)
[2017-02-17] MEDS: LIPASE/PROTEASE/AMYLASE 1 CAP PO SCH ×2 (16:49→22:41)
[2017-02-17] MEDS: NACL 0.9% 1,000 ML IV SCH (16:50)
[2017-02-17] MEDS: INSULIN ASPART 100 UNITS/ML, 10 ML VIAL (NovoLOG) SUBCUT PRN ×3 (16:58→23:05)
[2017-02-17] MEDS: MORPHINE 2 MG/ML INJ. SYRINGE IVP PRN ×2 (18:07→23:12)
[2017-02-17] MEDS: HEPARIN SODIUM,PORCINE 5000 UNITS/ML VIAL SUBCUT SCH (21:00)
[2017-02-17] MEDS: MUPIROCIN 2% TOPICAL OINTMENT 22 GM TP SCH (21:00)
[2017-02-17] MEDS: METOCLOPRAMIDE HCL 10 MG/2 ML VIAL IVP SCH (22:00)
[2017-02-17] MEDS: SERTRALINE HCL 50 MG TABLET PO SCH (22:41)
[2017-02-17] MEDS: FERROUS SULFATE 325 MG TABLET.DR PO SCH (22:41)
[2017-02-18 01:29] VITALS: BP_SYST 112
[2017-02-18 04:40] VITALS: BP_SYST 137
[2017-02-18] MEDS: MORPHINE 2 MG/ML INJ. SYRINGE IVP PRN ×5 (05:45→20:49)
[2017-02-18] MEDS: NACL 0.9% 1,000 ML IV SCH ×2 (05:54→16:46)
[2017-02-18] MEDS: METOCLOPRAMIDE HCL 10 MG/2 ML VIAL IVP SCH ×3 (05:55→23:23)
[2017-02-18 07:43] LABS: BASOPHILS % (AUTO) 0.6 % (0.0-2.0); EOSINOPHILS # (AUTO) 0.1 K/uL (0.0-0.4); HEMATOCRIT 33.3 % (36-54); HEMOGLOBIN 11.5 g/dL (14.0-18.0); LYMPHOCYTES % (AUTO) 31.3 % (20.5-51.5); MEAN CORPUSCULAR HEMOGLOBIN 31 pg (27-31); MEAN CORPUSCULAR HGB CONC 34 % (32-36); MEAN CORPUSCULAR VOLUME 90 fL (79.0-98.0); MONOCYTES # (AUTO) 0.3 K/uL (0.0-1.0); MONOCYTES % (AUTO) 5.3 % (1.7-9.3); NEUTROPHILS # (AUTO) 3.9 K/uL (1.8-7.7); NEUTROPHILS % (AUTO) 60.8 % (40.0-70.0); PLATELET COUNT (AUTO) 212 K/uL (130-430); RED BLOOD CELL COUNT(AUTO) 3.71 MIL/uL (4.2-6.2); RED CELL DISTRIBUTION WIDTH 12.6 % (9.0-15.0); WHITE BLOOD COUNT (AUTO) 6.3 K/uL (4.8-10.8)
[2017-02-18 08:09] LABS: CALCIUM 8.5 mg/dL (8.4-11.0); CREATININE 0.63 mg/dL (0.55-1.30); POTASSIUM 3.6 mmol/L (3.5-5.1)
[2017-02-18] MEDS: MUPIROCIN 2% TOPICAL OINTMENT 22 GM TP SCH ×2 (10:09→23:14)
[2017-02-18] MEDS: GABAPENTIN 300 MG CAPSULE PO SCH ×3 (10:09→23:11)
[2017-02-18] MEDS: LIPASE/PROTEASE/AMYLASE 1 CAP PO SCH ×3 (10:09→23:12)
[2017-02-18] MEDS: SERTRALINE HCL 50 MG TABLET PO SCH ×2 (10:10→23:12)
[2017-02-18] MEDS: risperiDONE 1 MG TABLET (RisperDAL) PO SCH (10:10)
[2017-02-18] MEDS: FERROUS SULFATE 325 MG TABLET.DR PO SCH ×2 (10:10→23:11)
[2017-02-18] MEDS: HEPARIN SODIUM,PORCINE 5000 UNITS/ML VIAL SUBCUT SCH ×2 (10:11→23:26)
[2017-02-18 13:21] VITALS: BP_SYST 139
[2017-02-18 16:00] VITALS: BP_SYST 132
[2017-02-18] MEDS: INSULIN ASPART 100 UNITS/ML, 10 ML VIAL (NovoLOG) SUBCUT PRN ×2 (16:50→23:29)
[2017-02-18 19:00] VITALS: BP_SYST 130
[2017-02-18 20:00] VITALS: BP_SYST 130
[2017-02-19] VITALS (7 sets, daily range): BP systolic 99–134
[2017-02-19] MEDS: MORPHINE 2 MG/ML INJ. SYRINGE IVP PRN ×5 (01:15→20:52)
[2017-02-19] MEDS: NACL 0.9% 1,000 ML IV SCH ×2 (04:30→10:01)
[2017-02-19] MEDS: METOCLOPRAMIDE HCL 10 MG/2 ML VIAL IVP SCH (05:24)
[2017-02-19] MEDS: INSULIN ASPART 100 UNITS/ML, 10 ML VIAL (NovoLOG) SUBCUT PRN ×3 (06:57→21:47)
[2017-02-19 07:01] LABS: BASOPHILS % (AUTO) 0.5 % (0.0-2.0); EOSINOPHILS # (AUTO) 0.1 K/uL (0.0-0.4); EOSINOPHILS % (AUTO) 1.6 % (0.0-4.0); HEMOGLOBIN 10.4 g/dL (14.0-18.0); LYMPHOCYTES # (AUTO) 1.7 K/uL (1.0-5.5); LYMPHOCYTES % (AUTO) 33.7 % (20.5-51.5); MEAN CORPUSCULAR HEMOGLOBIN 30 pg (27-31); MEAN CORPUSCULAR HGB CONC 34 % (32-36); MEAN CORPUSCULAR VOLUME 90 fL (79.0-98.0); MONOCYTES # (AUTO) 0.3 K/uL (0.0-1.0); MONOCYTES % (AUTO) 5.6 % (1.7-9.3); NEUTROPHILS # (AUTO) 2.9 K/uL (1.8-7.7); NEUTROPHILS % (AUTO) 58.6 % (40.0-70.0); PLATELET COUNT (AUTO) 171 K/uL (130-430); RED BLOOD CELL COUNT(AUTO) 3.45 MIL/uL (4.2-6.2); RED CELL DISTRIBUTION WIDTH 12.5 % (9.0-15.0)
[2017-02-19 07:02] LABS: CALCIUM 7.7 mg/dL (8.4-11.0); CREATININE 0.71 mg/dL (0.55-1.30); POTASSIUM 4.4 mmol/L (3.5-5.1)
[2017-02-19] MEDS ORDERED: BISACODYL 5 MG TABLET.DR (DULCOLAX) PO PRN (09:30)
[2017-02-19] MEDS: FERROUS SULFATE 325 MG TABLET.DR PO SCH ×2 (09:41→20:58)
[2017-02-19] MEDS: GABAPENTIN 300 MG CAPSULE PO SCH ×3 (09:42→20:51)
[2017-02-19] MEDS: LIPASE/PROTEASE/AMYLASE 1 CAP PO SCH ×3 (09:42→20:51)
[2017-02-19] MEDS: SERTRALINE HCL 50 MG TABLET PO SCH ×2 (09:43→20:51)
[2017-02-19] MEDS: risperiDONE 1 MG TABLET (RisperDAL) PO SCH (09:43)
[2017-02-19] MEDS: HEPARIN SODIUM,PORCINE 5000 UNITS/ML VIAL SUBCUT SCH ×2 (10:10→20:49)
[2017-02-19] MEDS: MUPIROCIN 2% TOPICAL OINTMENT 22 GM TP SCH ×2 (19:24→21:52)
[2017-02-20] MEDS: MORPHINE 2 MG/ML INJ. SYRINGE IVP PRN ×3 (00:59→09:08)
[2017-02-20 03:57] VITALS: BP_SYST 132
[2017-02-20 06:40] LABS: BASOPHILS % (AUTO) 0.4 % (0.0-2.0); EOSINOPHILS # (AUTO) 0.1 K/uL (0.0-0.4); EOSINOPHILS % (AUTO) 2.7 % (0.0-4.0); HEMATOCRIT 30.3 % (36-54); HEMOGLOBIN 10.1 g/dL (14.0-18.0); LYMPHOCYTES # (AUTO) 1.7 K/uL (1.0-5.5); LYMPHOCYTES % (AUTO) 36.1 % (20.5-51.5); MEAN CORPUSCULAR HEMOGLOBIN 30 pg (27-31); MEAN CORPUSCULAR HGB CONC 33 % (32-36); MEAN CORPUSCULAR VOLUME 90 fL (79.0-98.0); MONOCYTES # (AUTO) 0.3 K/uL (0.0-1.0); MONOCYTES % (AUTO) 6.5 % (1.7-9.3); NEUTROPHILS # (AUTO) 2.5 K/uL (1.8-7.7); NEUTROPHILS % (AUTO) 54.3 % (40.0-70.0); PLATELET COUNT (AUTO) 174 K/uL (130-430); RED BLOOD CELL COUNT(AUTO) 3.37 MIL/uL (4.2-6.2); RED CELL DISTRIBUTION WIDTH 12.7 % (9.0-15.0); WHITE BLOOD COUNT (AUTO) 4.6 K/uL (4.8-10.8)
[2017-02-20 06:54] LABS: CALCIUM 7.9 mg/dL (8.4-11.0); CREATININE 0.6 mg/dL (0.55-1.30); POTASSIUM 4.1 mmol/L (3.5-5.1)
[2017-02-20 07:40] VITALS: BP_SYST 142
[2017-02-20] MEDS: risperiDONE 1 MG TABLET (RisperDAL) PO SCH (08:59)
[2017-02-20] MEDS: FERROUS SULFATE 325 MG TABLET.DR PO SCH (08:59)
[2017-02-20] MEDS: GABAPENTIN 300 MG CAPSULE PO SCH (08:59)
[2017-02-20] MEDS: LIPASE/PROTEASE/AMYLASE 1 CAP PO SCH (08:59)
[2017-02-20] MEDS ORDERED: DOCUSATE SODIUM 100 MG CAPSULE PO SCH (09:00)
[2017-02-20] MEDS: SERTRALINE HCL 50 MG TABLET PO SCH (09:00)
[2017-02-20] MEDS: HEPARIN SODIUM,PORCINE 5000 UNITS/ML VIAL SUBCUT SCH (09:13)
[2017-02-20] MEDS: MUPIROCIN 2% TOPICAL OINTMENT 22 GM TP SCH (09:17)
[2017-02-20 10:15] VITALS: BP_SYST 142
[2017-02-20 12:20] VITALS: BP_SYST 131
== END 2017-02-20 11:15 | DRG 74 ==
LOC: SED 11:04 → SMU 14:34
PROVIDERS: ADMIT General Practice; ATTEND General Practice
DX: E11.43 Type 2 diabetes mellitus with diabetic autonomic (poly)neuropathy (principal); E44.0 Moderate protein-calorie malnutrition; E11.65 Type 2 diabetes mellitus with hyperglycemia; K86.1 Other chronic pancreatitis; Z68.1 Body mass index [BMI] 19.9 or less, adult; K31.84 Gastroparesis; E86.0 Dehydration; F32.9 Major depressive disorder, single episode, unspecified; R74.0 Nonspecific elevation of levels of transaminase and lactic acid dehydrogenase [LDH]; Z89.511 Acquired absence of right leg below knee; Z86.61 Personal history of infections of the central nervous system; Z79.899 Other long term (current) drug therapy; Z91.14 Patient's other noncompliance with medication regimen
CPT/HCPCS: 36415; 71010; 74000-TC; 80048; 80053; 80307; 81000-TC; 82140-TC; 82150-TC; 82962; 83605; 83690-TC; 83735-TC; 84439; 85025; 85610-TC; 87040-TC; 93005; 96361; 96374; 96375; 97110-GP; 97116-GP; 97530-GP; 99285; G0482; J1200; J1644; J1815; J2270; J2765; J7030